=== PATIENT | male | born 1940 | race Caucasian/White ===

== ENCOUNTER → 2016-07-25 11:48 | Outpatient (CLI) | payer MEDICARE, BC ==
[2015-08-31 12:24] VITALS: BMI 23.6
[~2016-07-25 11:48] MED LIST: ASPIRIN 81 MG E81 MG PO; BETAPACE 80 MG80 MG PO; CARTIA XT180 MG PO; CORDARONE200 MG PO; COUMADIN3 MG PO; D5 1/2NS 10001000 ML; DOXEPIN HCL10 MG PO; FLOMAX0.4 MG PO; GLIPIZIDE10 MG PO; GLUCOPHAGE500 MG PO; HYDROCODON-ACE1 EAC7 PO; JANUVIA100 MG PO; LANOXIN125 MCG PO; LIPITOR20 MG PO; MEGACE40 MG PO; NEURONTIN 300300 MG PO; ONDANSETRON4 MG/2 M3 IV; PACERONE200 MG PO; PEPCID40 MG PO; PLAVIX75 MG PO; PRILOSEC20 MG PO; PROSCAR5 MG PO; PROTONIX40 MG PO; XARELTO20 MG PO; ZANTAC300 MG PO; ZESTRIL10 MG PO; ZOCOR20 MG PO
== END | disposition home or self-care (01) ==
LOC: D.LAB 11:48
DX: R05 Cough (principal); F17.200 Nicotine dependence, unspecified, uncomplicated

== ENCOUNTER 2016-07-27 05:39 | Inpatient (IN) | payer MEDICARE, BC ==
[~2016-07-27] VITALS: Ht 175.3 cm; Wt 72.6 kg
[~2016-07-27 05:39] MED LIST changes: -DOXEPIN HCL10 MG PO; -JANUVIA100 MG PO; -LANOXIN125 MCG PO; -LIPITOR20 MG PO; -MEGACE40 MG PO; -NEURONTIN 300300 MG PO
[2016-07-27 06:44] LABS: BASOPHILS 0 % (0-2); EOSINOPHILS 1.2 % (0-7); IMMATURE GRANULOCYTES 0.6 % (0-5); LYMPHOCYTES 6.1 % (15-50); MCH 20.1 pg (26.0-34.0); MCHC 29.6 g/dL (31.0-37.0); MONOCYTES 7.2 % (2-11); NEUTROPHILS 84.9 % (40-80); PLATELET COUNT 291 10x3/uL (130-400); RBC 3.53 10x6/uL (4.20-6.10); RDW 19.3 % (11.5-14.5); WBC 13.7 10x3/uL (4.8-10.8)
[2016-07-27 06:46] LABS: HEMOGLOBIN 7.1 g/dL (13.5-17.5)
[2016-07-27 06:57] LABS: ALBUMIN 2.7 g/dL (3.4-5.0); ANION GAP 16.9 mmol/L (8-16); BILIRUBIN - TOTAL 0.19 mg/dL (0.2-1.3); CALCIUM 8.3 mg/dL (8.5-10.1); CARBON DIOXIDE 20.4 mmol/L (21.0-32.0); CREATININE - SERUM 2.4 mg/dL (0.6-1.3); POTASSIUM - SERUM 4.3 mmol/L (3.5-5.1); PROTEIN - SERUM 7.2 g/dL (6.4-8.2)
[2016-07-27 07:54] LABS: APTT 25.6 SECONDS (22.8-39.4); INR 1.06 (0.85-1.17); PROTIME 13.6 SECONDS (11.6-15.0)
[2016-07-27 07:56] LABS: APPEARANCE CLEAR (CLEAR); BILIRUBIN NEGATIVE (NEGATIVE); COLOR YELLOW (YELLOW); GLUCOSE NEGATIVE (NEGATIVE); KETONE NEGATIVE (NEGATIVE); LEUKOCYTE ESTERASE NEGATIVE (NEGATIVE); NITRITE NEGATIVE (NEGATIVE); PROTEIN TRACE mg/dL (NEGATIVE); SPECIFIC GRAVITY 1.015 (1.005-1.020); UROBILINOGEN NORMAL (NORMAL)
[2016-07-27 07:58] LABS: BACTERIA FEW /hpf (NONE SEEN); EPITHELIAL CELLS 0-5 /hpf (0-5); HYALINE CAST OCC /lpf (NONE SEEN); MUCUS <1+ /lpf (NONE SEEN); RED CELLS - URINE 0-5 /hpf (0-5); WHITE CELLS - URINE 0-5 /hpf (0-5)
--- NOTE | 2016-07-27 09:45 | NUR ---
RECIEVED FROM ER VIA WC TO ROOM 2222 AWAKE AND ALERT ORINETED X 3 AT SIDE CALL LIGHT PLACED IN REACH AND SIDE RAILS UP X 2 PT WITH NO ACUTE DISTRESS NTOED UPON ASSESSMENT DOES HAVE TENDERNESS TO LEFT UPPER QUADRAND WITH PALPATION.
[2016-07-27 10:00] VITALS: BP 165/74; BMI 23.6
--- NOTE | 2016-07-27 10:05 | NUR ---
ASSESSMENT PER ADMIT PACK.PT WITHOUT DISTRESS.FAMILY AT BEDSIDE.ORIENTATION TO ROOM.CALL LIGHT IN REACH
--- NOTE | 2016-07-27 11:00 | NUR ---
SPOKE WITH DR SUBRAMANIAN NEW ORDER FOR CT OF ABDOMEN/PELVIS WITH ORAL CONRTAST ONLY ALSO CHANGE DIET TO CLEAR LIQUID DIABETIC DIET. AND START GOLYTLE CLEAN OUT AFTER CT SCAN THIS AFTERNOON. PT NOTIFIED OF NEW ORDERS
--- NOTE | 2016-07-27 12:20 | NUR ---
UNIT 1 OF 2 INITIATED AT THIS TIME PER UNIT RN. VS WNL SEE FLOW SHEET. AFEBRILE. PIV TO RIGHT FORARM 20 GA PATENT TO FLUSH WITH NO REDNESS NOTED WILL MONITOR DURING TRANSFUSION.
[2016-07-27 12:33] VITALS: BP 161/64
[2016-07-27] MEDS ORDERED: MEGACE40 MG PO (16:23)
[2016-07-27] MEDS ORDERED: LANOXIN125 MCG PO (16:25)
[2016-07-27] MEDS ORDERED: NEURONTIN 300300 MG PO (16:25)
[2016-07-27] MEDS ORDERED: LIPITOR20 MG PO (16:26)
[2016-07-27] MEDS ORDERED: DOXEPIN HCL10 MG PO (16:29)
[2016-07-27] MEDS ORDERED: JANUVIA100 MG PO (16:29)
[2016-07-27] MEDS ORDERED: HYDROCODON-ACE1 EAC7 PO (16:30)
--- NOTE | 2016-07-27 17:54 | NUR ---
UNIT [facility] 2 OF BLOOD COMPLETE AT THIS TIME
--- NOTE | 2016-07-27 18:12 | NUR ---
CALLED CT TO ALERT THAT BLOOD IS COMPLETE TO GET CT SCAN DONE
[2016-07-27 20:00] VITALS: BP 142/70
[2016-07-27 20:02] LABS: HEMATOCRIT 31.8 % (42.0-54.0); HEMOGLOBIN 9.7 g/dL (13.5-17.5)
[2016-07-28] VITALS: BP 141/65
[2016-07-28 04:00] VITALS: BP 118/66
--- NOTE | 2016-07-28 04:00 | NUR ---
PATIENT SLEEPING WITH NO DISTRESS NOTED. AGREE WITH WATER TRUCK DRIVER ASSESSMENT.
[2016-07-28 05:44] LABS: BASOPHILS 0.1 % (0-2); EOSINOPHILS 0.2 % (0-7); HEMOGLOBIN 9.7 g/dL (13.5-17.5); IMMATURE GRANULOCYTES 0.2 % (0-5); LYMPHOCYTES 5.8 % (15-50); MCH 21.9 pg (26.0-34.0); MCHC 30.3 g/dL (31.0-37.0); MEAN PLATELET VOLUME 9.1 fL (7.4-10.4); MONOCYTES 6.8 % (2-11); NEUTROPHILS 86.9 % (40-80); PLATELET COUNT 270 10x3/uL (130-400); RDW 20.9 % (11.5-14.5); WBC 12.1 10x3/uL (4.8-10.8)
[2016-07-28 05:46] LABS: MCV 72.2 fL (80.0-100.0); RBC 4.43 10x6/uL (4.20-6.10)
--- NOTE | 2016-07-28 05:54 | NUR ---
PATIENT SIGNED CONSENTS FOR EGD AND COLONOSCOPY WITH TIVA. ALL QUESTIONS WERE ANSWERED AT BEDSIDE.
[2016-07-28 05:55] LABS: ALBUMIN 2.7 g/dL (3.4-5.0); ANION GAP 14.7 mmol/L (8-16); BILIRUBIN - TOTAL 0.42 mg/dL (0.2-1.3); CALCIUM 8.6 mg/dL (8.5-10.1); CARBON DIOXIDE 24.4 mmol/L (21.0-32.0); POTASSIUM - SERUM 4.1 mmol/L (3.5-5.1); PROTEIN - SERUM 7.1 g/dL (6.4-8.2)
[2016-07-28 06:10] LABS: CREATININE - SERUM 1.5 mg/dL (0.6-1.3)
--- NOTE | 2016-07-28 06:25 | NUR ---
25mL OF D50 GIVEN FOR LAB DRAW GLUCOSE LEVEL OF 38.
--- NOTE | 2016-07-28 06:46 | NUR ---
RECHECK FSBG WAS 108. PATIENT WAS a&o THE WHOLE TIME.
--- NOTE | 2016-07-28 07:00 | NUR ---
REPORT RECEIVED FROM FIELD COIL WINDER NURSE. CALL LIGHT IN REACH.
[2016-07-28 07:46] VITALS: BP 142/62
--- NOTE | 2016-07-28 08:20 | NUR ---
OFFERED SCDs AND EXPLAINED IMPORTANCE OF THEM BUT PATIENT REFUSED.
--- NOTE | 2016-07-28 10:00 | NUR ---
PT AOX4 RESP EVEN AND NONLABORED IV TO LEFT FOREARM PATENT AND INTACT PT DENIES PAIN AND NEEDS AT THIS TIME. SRX2 BED AT LOWEST SETTING CALL LIGHT WITHIN REACH WILL CONTINUE TO MONITOR
--- NOTE | 2016-07-28 10:24 | NUR ---
ASSESSMENT COMPLETED. AM MEDS ADMINISTERED WITH SIP OF WATER AND NORCO ALSO FOR PAIN OF 7 TO ABDOMEN. PAIN SCALE NUMBER INCREASED TO 4 SO BED ALARM PLACED ON PATIENT. EMERGENCY CONTACT INFO OBTAINED AND PLACED IN CHART. REFUSED PASSWORD. WILL PLACE ANGEL CATHETER AFTER BED BATH IS GIVEN PER PROGRAMMER NUMERICAL CONTROL. CALL LIGHT IN REACH. WILL CONTINUE WITH PLAN OF CARE.
--- NOTE | 2016-07-28 11:05 | NUR ---
FSBS 44 SO 1/2 AMP OF D50 GIVEN IV.
--- NOTE | 2016-07-28 11:16 | NUR ---
16 FR ANGEL CATH INSERTED USING STERILE TECHNIQUE WITH 200 CC CLEAR YELLOW URINE RETURN. ALL KIT CONTENTS USED. TOLERATED WELL.
[2016-07-28 11:51] VITALS: BP 149/70
--- NOTE | 2016-07-28 12:15 | NUR ---
NO NEEDS VOICED AT THIS TIME. CALL LIGHT IN REACH.
[2016-07-28 12:39] VITALS: Ht 175.3 cm; Wt 72.6 kg
--- NOTE | 2016-07-28 14:04 | NUR ---
PREOP MEDS ADMINISTERED. NORCO AND DIG WITH SIP OF WATER. CALL LIGHT IN REACH.
[2016-07-28 14:44] VITALS: BP 136/65
--- NOTE | 2016-07-28 15:04 | NUR ---
TO GI LAB VIA BED.
--- NOTE | 2016-07-28 16:20 | NUR ---
BACK IN ROOM AT THIS TIME. VSS. IN ROOM. CALL LIGHT IN REACH.
--- NOTE | 2016-07-28 18:43 | NUR ---
NO CHANGES IN INITIAL ASSESSMENT. STILL REFUSES SCDs. CALL LIGHT IN REACH. WILL CONTINUE WITH PLAN OF CARE.
[2016-07-28 19:08] LABS: HEMOGLOBIN 9.8 g/dL (13.5-17.5)
[2016-07-28 20:00] VITALS: BP 124/64
[2016-07-29] VITALS: BP 131/64
[2016-07-29 04:00] VITALS: BP 112/56
--- NOTE | 2016-07-29 05:31 | NUR ---
PATIENT WAS UP AND DOWN THROUGHOUT THE NIGHT. ASHLYN MAT WAS ADDED SINCE THE PATIENT WOULD UNCLIP THE BOX ALARM FROM GOWN TO GET UP TO THE RESTROOM. HE WAS STABLE ON HIS FEET BUT HAS A Hx OF FALLS. ANGEL CAUSED SOME DISCOMFORT, IT WAS RE-CLIPPED INTO THE STAT LOCK ON HIS RIGHT LEG AND DISCOMFORT WAS RESOLVED. HE EXPRESSED CONCERNS TOWARDS HIS ANXIETY LEVELS AND THE DECREASE IN MEDICATIONS THAT HE HAS BEEN RECIEVING. SOME COMPLAINTS OF DISCOMFORT TO HIS LEFT UP ABDOMEN WITH A 6/10 PAIN DESCRIBED. CURRENT PAIN REGIME SEEMS TO BE ADEQUATE.
[2016-07-29 05:52] LABS: BASOPHILS 0.1 % (0-2); EOSINOPHILS 1.2 % (0-7); HEMATOCRIT 33.1 % (42.0-54.0); IMMATURE GRANULOCYTES 0.2 % (0-5); LYMPHOCYTES 10.4 % (15-50); MCHC 30.2 g/dL (31.0-37.0); MCV 72.7 fL (80.0-100.0); MEAN PLATELET VOLUME 9.8 fL (7.4-10.4); NEUTROPHILS 81.1 % (40-80); PLATELET COUNT 293 10x3/uL (130-400); RBC 4.55 10x6/uL (4.20-6.10); RDW 21.5 % (11.5-14.5); WBC 12.9 10x3/uL (4.8-10.8)
[2016-07-29 06:23] LABS: ALBUMIN 2.7 g/dL (3.4-5.0); ANION GAP 11.8 mmol/L (8-16); BILIRUBIN - TOTAL 0.31 mg/dL (0.2-1.3); CALCIUM 8.5 mg/dL (8.5-10.1); CARBON DIOXIDE 26.1 mmol/L (21.0-32.0); CREATININE - SERUM 1.7 mg/dL (0.6-1.3); POTASSIUM - SERUM 3.9 mmol/L (3.5-5.1); PROTEIN - SERUM 7.5 g/dL (6.4-8.2); T4 THYROXIN - FREE 1.34 ng/dL (0.76-1.46); THYROID STIMULATING HORMONE 2.05 uIU/mL (0.36-3.74)
--- NOTE | 2016-07-29 07:10 | NUR ---
REPORT RECEIVED FROM AIR TRAFFIC COORDINATOR NURSE. CALL LIGHT IN REACH.
--- NOTE | 2016-07-29 08:00 | NUR ---
TO RADIOLOGY VIA .
[2016-07-29 08:05] VITALS: BP 145/66
--- NOTE | 2016-07-29 09:40 | NUR ---
SITTING UP ON SIDE OF BED ALERT. NO SIGNS OF DISTRESS NOTED. BED IN LOW POSITION. CALL LIGHT IN REACH.
--- NOTE | 2016-07-29 09:53 | NUR ---
BACK IN ROOM. ASSESSMENT COMPLETED. AM MEDS ADMINISTERED. REFUSES SCDs. CALL LIGHT IN REACH. ASHLYN MAT ALARM ON. WILL CONTINUE WITH PLAN OF CARE.
--- NOTE | 2016-07-29 11:20 | NUR ---
AMI AND DIG PO. PROTONIX SIVP. FSBS 150 SO NO COVERAGE REQUIRED.
[2016-07-29 12:38] VITALS: BP 136/68
--- NOTE | 2016-07-29 13:40 | NUR ---
IN ROOM. PATIENT DENIES NEEDS AT THIS TIME. CALL LIGHT IN REACH.
--- NOTE | 2016-07-29 15:57 | NUR ---
NO NEEDS VOICED AT THIS TIME. CALL LIGHT IN REACH.
[2016-07-29 16:01] VITALS: BP 135/65
--- NOTE | 2016-07-29 16:43 | NUR ---
REFUSED INSULIN AT THIS TIME. WANTS TO TAKE GLIPIZIDE INSTEAD. NORCO PO FOR PAIN OF 10. FLAGYL IVPB. IN ROOM. CALL LIGHT IN REACH.
--- NOTE | 2016-07-29 18:54 | NUR ---
NO CHANGES IN INITIAL ASSESSMENT. CALL LIGHT IN REACH. STILL REFUSES SCDs. CALL LIGHT IN REACH. WILL CONTINUE WITH PLAN OF CARE.
[2016-07-29 20:00] VITALS: BP 132/90
--- NOTE | 2016-07-29 20:18 | NUR ---
PATIENT SITTING IN BED, COMPLAINTS OF ABDOMINAL PAIN. HE WAS INFORMED THAT HE HAD PAIN MEDICATION EVERY 8 HOURS AND WAS OKAY WITH THAT. ANGEL CHECKED AND WAS SECURED TO HIS LEG PROPERLY IN THE STAT LOCK. NO OTHER NEEDS NOTED AT THIS TIME. BED IN LOWEST LOCKED POSITION, CALL LIGHT WITHIN REACH, HOB ELEVATED, BED RAILS UPx2. BED ALARMS OFF, BED ALARM REFUSAL FORM SIGNED AND IN CHART.
[2016-07-30] VITALS: BP 134/67
--- NOTE | 2016-07-30 00:19 | NUR ---
PATIENT RESTING WITH EYES CLOSED AND NO VISIBLE SIGNS OF DISTRESS. BED IN LOWEST POSITION AND CALL LIGHT WITHIN REACH.
[2016-07-30 04:00] VITALS: BP 121/59
[2016-07-30 04:58] LABS: BASOPHILS 0.1 % (0-2); HEMATOCRIT 31.4 % (42.0-54.0); HEMOGLOBIN 9.4 g/dL (13.5-17.5); IMMATURE GRANULOCYTES 0.4 % (0-5); LYMPHOCYTES 7.5 % (15-50); MCH 21.9 pg (26.0-34.0); MCHC 29.9 g/dL (31.0-37.0); MEAN PLATELET VOLUME 9.4 fL (7.4-10.4); MONOCYTES 8.7 % (2-11); NEUTROPHILS 81.3 % (40-80); PLATELET COUNT 240 10x3/uL (130-400); RDW 21.5 % (11.5-14.5)
[2016-07-30 05:15] LABS: ALBUMIN 2.3 g/dL (3.4-5.0); BILIRUBIN - TOTAL 0.4 mg/dL (0.2-1.3); CARBON DIOXIDE 25.7 mmol/L (21.0-32.0); CREATININE - SERUM 1.4 mg/dL (0.6-1.3); POTASSIUM - SERUM 3.7 mmol/L (3.5-5.1); PROTEIN - SERUM 6.3 g/dL (6.4-8.2)
[2016-07-30 07:44] VITALS: BP 141/60
--- NOTE | 2016-07-30 08:17 | NUR ---
PT AOX4 RESP EVEN AND NONLABORED PT DENIES NEEDS AT THIS TIME SL TO RIGHT FOREARM PATENT AND INTACT SRX2 BED IN LOWEST POSITION CALL LIGHT WITHIN REACH WILL CONTINUE TO MONITOR
[2016-07-30 12:40] VITALS: BP 138/54
[2016-07-30 15:50] VITALS: BP 105/54
--- NOTE | 2016-07-30 19:49 | NUR ---
PATIENT CALL LIGHT WAS RESPONED TO. PATIENT HAD TAKEN OFF HIS BOX ALARM, STANDING UP AT BEDSIDE, UNBALANCED. BLOOD WAS NOTED ON HIS PILLOW CASE, SHEETS, AND BLANKETS. UPON FURTHER INSPECTION HE HAD PULLED OUT IS 20G PIV TO HIS RIGHT FOREARM. HE WAS INFORMED TO SIT BACK DOWN SO HE DOESN'T FALL AND INJURE HIMSELF. HE WAS ALSO INFORMED THAT ANOTHER PIV WOULD BE PLACED.
[2016-07-30 20:00] VITALS: BP 153/73
--- NOTE | 2016-07-30 20:16 | NUR ---
20G PIV TO THE LEFT FOREARM INIATED. PIV SALINE LOCKED. FULL LINEN CHANGE COMPLETED AND PATIENT CLEANED UP WITH NEW GOWN. EVS INFORMED THAT THE FLOOR NEEDS TO BE MOPPED. ASHLYN ALARM TURNED ON EVEN THOUGH PATIENT HAS A BED ALARM WAIVER SIGNED AFTER HE STUMBLED 2 STEPS WHILE TRYING TO CLIMB INTO BED.
[2016-07-31 00:09] VITALS: BP 103/78
[2016-07-31 04:00] VITALS: BP 138/65
--- NOTE | 2016-07-31 04:07 | NUR ---
EYES CLOSED RESPIRATIONS WITH EASE AND UNLABORED. SR UP X2 CALL LIGHT WITHIN REACH.
[2016-07-31 04:54] LABS: BASOPHILS 0.1 % (0-2); EOSINOPHILS 1.5 % (0-7); HEMOGLOBIN 9.2 g/dL (13.5-17.5); IMMATURE GRANULOCYTES 0.3 % (0-5); LYMPHOCYTES 10.3 % (15-50); MCH 22.3 pg (26.0-34.0); MCHC 30.7 g/dL (31.0-37.0); MCV 72.6 fL (80.0-100.0); MEAN PLATELET VOLUME 9.3 fL (7.4-10.4); MONOCYTES 6.8 % (2-11); PLATELET COUNT 240 10x3/uL (130-400); RBC 4.13 10x6/uL (4.20-6.10); RDW 21.8 % (11.5-14.5)
[2016-07-31 04:57] LABS: WBC 13.6 10x3/uL (4.8-10.8)
[2016-07-31 05:24] LABS: ALBUMIN 2.2 g/dL (3.4-5.0); ANION GAP 12.3 mmol/L (8-16); BILIRUBIN - TOTAL 0.28 mg/dL (0.2-1.3); CALCIUM 8.4 mg/dL (8.5-10.1); CARBON DIOXIDE 23.8 mmol/L (21.0-32.0); CREATININE - SERUM 1.5 mg/dL (0.6-1.3); POTASSIUM - SERUM 4.1 mmol/L (3.5-5.1); PROTEIN - SERUM 6.3 g/dL (6.4-8.2)
--- NOTE | 2016-07-31 09:09 | NUR ---
Patient Name: MORENO CARRASCO Admission Status: ER Accout number: [id number] Admission Date: 07-27-2016 : 1941 Admission Diagnosis:IRON DEFICIENCY ANEMIA SECONDARY TO BLOOD LOSS (CHRONIC Attending: KONSTANTIN Current LOS: 4 Anticipated DC Date: 08-02-2016 Planned Disposition: Home Primary Insurance: MEDICARE A & B Discharge Planning Comments: CM MET WITH PATIENT REGARDING D/C NEEDS AND PLANS. PATIENT STATED HE LIVES WITH HIS SPOUSE (HEATHER) AND SHE WILL DRIVE HIM HOME AT DISCHARGE. PATIENT STATED HIS HOME IS SAFE. PATIENT HAS 1 STEP W/O RAILS TO ENTER HOME AND 1 STAIRCASE INSIDE W/O RAILS (PATIENT DOES NOT USE STAIRCASE). PATIENT STATED HE IS INDEPENDENT WITH HIS CARE AND HAS A GLUCOMETER AT HOME AND CHECKS HIS SUGAR 1-2 X DAILY. PATIENTS PCP IS DR. BURTON AND PHARMACY IS [facility] PATIENT DOES NOT WANT HOME HEALTH AT THIS TIME. CM WILL CONTINUE TO FOLLOW PATIENT WITH D/C NEEDS AND PLANS. PCP DR. [facility]- [phone] HEATHER (SPOUSE) [phone] OR [phone] Tableman: Ana Leonardo
--- NOTE | 2016-07-31 09:14 | NUR ---
BACK FROM TEST ALERT AND ORIENTED, MAURAS NEEDS, ASSESSMENT COMPLETE, CALL LIGHT IN REACH, BED LOWEST POSITION, WILL CONTINUE TO MONITOR
--- NOTE | 2016-07-31 09:38 | NUR ---
Rehab Note- Acute Rehab Prescreen order. Spoke with SHAI Perez. Awaiting PT eval. Thank you for this referral! Velma Ruiz RN Clinical Liaison, [facility]/Jeanie
[2016-07-31 09:45] VITALS: BP 106/64
--- NOTE | 2016-07-31 10:00 | NUR ---
ASKED PT ABOUT LEFT SIDED PAIN, HE STATED HE FELL AT HOME NOT AT THE HOSPITAL
--- NOTE | 2016-07-31 11:00 | NUR ---
UP IN CHAIR AT THIS TIME WITH ASHLYN MAT ALARM ON AND IN USE. PT DENIES PAIN AT THIS TIME. ANGEL CATHETER PATENT AND DRAINING TO GRAVITY. RESPIRATIONS EVEN AND NON LABORED. CALL LIGHT IN REACH AND DOOR OPEN. WILL CONTINUE WITH PLAN OF CARE.
[2016-07-31 12:59] VITALS: BP 123/58
[2016-07-31] MEDS ORDERED: HUMULIN R100 U/ML SC (13:33)
[2016-07-31] MEDS ORDERED: FLAGYL 500500 MG/100 IV (13:37)
--- NOTE | 2016-07-31 16:32 | OP ---
PATIENT NAME: MORENO CARRASCO MEDICAL RECORD: [id number] :41 LOCATION:[facility] ADMISSION DATE:07/27/16 SURGEON: MAIN SUBRAMANIAN MD DATE OF OPERATION: 07/28/2016 PROCEDURE: EGD with biopsy and colonoscopy. ATTENDING PHYSICIAN: Dorinda Burton DO INDICATIONS: Mr. Carrasco is a pleasant 75-year-old gentleman with a history of coronary artery disease with stents and a pacemaker, who presented to the Emergency Department secondary to symptoms of abdominal pain. CT of the abdomen and pelvis showed constipation and dilated urinary bladder with enlarge prostate, possible outlet obstruction. His labs were remarkable for hemoglobin of 7.1. Stools were Hemoccult positive. He has been on Plavix therapy. He had 2 units of packed red blood cells and his hemoglobin increase to 9.7. He has had colonoscopy in the remote past, had an EGD with Dr. Csatle, August 2015. 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 To further evaluate his microcytic anemia, he presents for inpatient EGD and colonoscopy. PREMEDICATIONS: Total IV anesthesia (ASA 3, history of coronary artery disease), propofol 500 mg. INSTRUMENT: Olympus video gastroscope and Olympus video colonoscope. PROCEDURE AND FINDINGS: After receiving informed consent, Mr. Carrasco's posterior pharynx was anesthetized with Cetacaine spray, placed in left lateral decubitus position, sedated as per anesthesia. After achieving an adequate level of sedation, the gastroscope was introduced per orally and advanced into the duodenum without difficulty. There were several tongues of salmon-colored mucosa extending from the Z line proximally (not biopsied on this exam) small hiatal hernia. There was a patch of erythema in the body of the stomach, nonhemorrhagic. There were no lesions seen along the incisura, in the cardia or fundus. There is mild prepyloric erythema and antral biopsies were obtained to rule out Helicobacter pylori. The pylorus was patent and competent. Duodenal mucosa was without erythema or ulcers, appeared normal to the second portion. Biopsies were obtained from the second portion of duodenum. The gastroscope was then withdrawn. He is prepared for colonoscopy. Digital rectal exam was performed that showed no external hemorrhoidal tags, fissures or fistulas, slightly decreased sphincter tone, no palpable rectal masses. The prostate was enlarged without nodules. The colonoscope was introduced per rectally and advanced to the cecum without difficulty. There was a fair to copious amount of thick liquid semi-formed stool and indigestible debris scattered throughout the colon. Multiple lavages were performed. The terminal ileum was briefly intubated and the mucosa appeared normal. As the colonoscope was withdrawn, careful inspection was made of the gamboa of the colon. Overall mucosa had normal vascular and fold pattern. Multiple lavages were performed. There was a cluster of diverticula in the proximal descending colon and then scattered throughout the sigmoid colon. Retroflexion in rectum showed mild internal hemorrhoids. There is no blood seen in the upper GI tract nor in the lower GI tract. ASSESSMENT: OPERATIVE REPORT [id number] MORENO CARRASCO 1. 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 2. Small hiatal hernia. 3. Mild gastritis. 4. Left colonic diverticulosis without obvious diverticulitis, but bowel prep was marginal and may have underlying low-grade diverticulitis to explain his left side abdominal pain. 5. Microcytic anemia, no obvious upper or lower gastrointestinal etiology. RECOMMENDATIONS: 1. Small bowel follow through. 2. We will check a T4, TSH and serum protein electrophoresis. 3. Follow up histopathology. 4. Empirically treat with Flagyl 500 mg IV q. 8 hours. 5. Small bowel follow through, T4, TSH and serum protein electrophoresis are normal. Recommend hematology/oncology consultation regarding his microcytic anemia. TRANSINT:[id number] Voice Confirmation ID: [id number] DOCUMENT ID: [id number] MAIN SUBRAMANIAN MD at 1632 CC: DORINDA BURTON DO [id number] DICTATION DATE: 07/28/16 1640 MASON LINER: 07/29/16 0034 ADM IN [facility] [address] [place] [address]
--- NOTE | 2016-07-31 16:35 | NUR ---
CM REASSESSMENT NOTE: PATIENT IS DISCHARGING TO IP REHAB. AWARE, D/C IMM SIGNED
[2016-07-31 17:02] VITALS: BP 135/62
--- NOTE | 2016-07-31 22:18 | NUR ---
REC'D PATIENT SITTING UP ON SIDE OF BED, IS WANTING TO MAKE A PHONE CALL. ALERT AND ORIENTED X4. DENIES PAIN AT THIS TIME. HELPED HIM TO PLACE THE CALL. DENIES FURTHER NEEDS AT THIS TIME. NO DISTRESS NOTED. INSTRUCTED TO CALL IF NEEDED ANYTHING. BED LOW, LOCKED, CALL LIGHT IN REACH.
--- NOTE | 2016-07-31 22:20 | NUR ---
PATIENT WAS DC TO REHAB. GAVE REPORT TO REHAB NURSE. GAVE DC INSTRUCTIONS TO PATIENT. ANGEL AND IV STILL INTACTED. DEC'D HEART MONITOR. WAS TAKING DOWN BY WHEELCHAIR BY CHARLOTTE DUNCAN.
[2016-08-01 16:13] LABS: SPE - A/G RATIO 0.8 (0.7-1.7); SPE - ALBUMIN 2.9 g/dL (2.9-4.4); SPE - ALPHA-1 GLOBULIN 0.3 g/dL (0.0-0.4); SPE - ALPHA-2 GLOBULIN 1.2 g/dL (0.4-1.0); SPE - BETA GLOBULIN 1.2 g/dL (0.7-1.3); SPE - M-SPIKE Not Observed g/dL (Not Observed); SPE - TOTAL PROTEIN 6.6 g/dL (6.0-8.5)
== END 2016-07-31 21:21 | DRG 812 ==
LOC: D.ER 05:39 → D.MS 09:13
PROVIDERS: Emergency Medicine; Internal Medicine Gastroenterology; ADMIT Family Medicine
PROC: 0DB68ZX Excision of Stomach, Via Natural or Artificial Opening Endoscopic, Diagnostic (ICD-10-PCS; 2016-07-28)
PROC: 0DJD8ZZ Inspection of Lower Intestinal Tract, Via Natural or Artificial Opening Endoscopic (ICD-10-PCS; 2016-07-28)
PROC: 0DB98ZX Excision of Duodenum, Via Natural or Artificial Opening Endoscopic, Diagnostic (ICD-10-PCS; principal; 2016-07-28 15:00)
DX: D50.0 Iron deficiency anemia secondary to blood loss (chronic) (principal); K92.2 Gastrointestinal hemorrhage, unspecified; E11.65 Type 2 diabetes mellitus with hyperglycemia; I48.91 Unspecified atrial fibrillation; Z79.84 Long term (current) use of oral hypoglycemic drugs; I10 Essential (primary) hypertension; Z95.0 Presence of cardiac pacemaker; N32.89 Other specified disorders of bladder; N40.0 Benign prostatic hyperplasia without lower urinary tract symptoms; Z91.81 History of falling; K64.8 Other hemorrhoids; K44.9 Diaphragmatic hernia without obstruction or gangrene; K29.70 Gastritis, unspecified, without bleeding; K22.70 Barrett's esophagus without dysplasia

== ENCOUNTER 2016-07-31 21:48 | Inpatient (IN) | payer MEDICARE, BC ==
[~2016-07-31] VITALS: Ht 167.6 cm; Wt 73.5 kg
[~2016-07-31 21:48] MED LIST changes: +DOXEPIN HCL10 MG PO; +FLAGYL 500500 MG/100 IV; +HUMULIN R100 U/ML SC; +JANUVIA100 MG PO; +LANOXIN125 MCG PO; +LIPITOR20 MG PO; +MEGACE40 MG PO; +NEURONTIN 300300 MG PO
--- NOTE | 2016-07-31 22:00 | NUR ---
PT HAS THICK ACCENT, ADMISSION ASSESSMENT, PAPER SIGNED, PT APPEARS TO ANSWER APPROPRIATELY. PT ANGEL CATHETER UNKINKED, PT STATES HE WAS FEELING A LITTLE FULL. PT PLEASANT.
--- NOTE | 2016-07-31 22:30 | NUR ---
PT IN ROOM, TRANSPORTED FROM MED SURG ACCOMPANIED BY STAFF. PT RESIDES WITH SPOUSE AND PLANS TO RETURN HOME, PT STATES HE HAS TWO ADULT CHILDREN THAT LIVE OUT OF STATE. PT STATE HE IS MOTIVATED TO GET STARTED WITH THERAPY, GET HIS STRENGTH AND RETURN HOME. PT STATES HE ONLY HAS PAIN AT THIS TIME WHEN HIS RIBS ARE TOUCHED, HE COUGHS OR MOVES ESPECIALLY WHEN USING HIS LEFT ARM. PT CONVERSIVE, SMILES EASILY. PT HAS TREMORS IN BOTH HANDS, PT STATES USUALLY WHEN HE IS USING THEM SUCH WRITING.
[2016-07-31 23:10] VITALS: BP 146/56; BMI 26.2
--- NOTE | 2016-08-01 00:15 | NUR ---
PT RESTING QUIETLY, RESPIRATIONS REGULAR AND UNLABORED, NO S/S OF ACUTE DISTRESS.
--- NOTE | 2016-08-01 05:00 | NUR ---
PT RESTING QUIELTY, RESPIRATIONS REGULAR AND UNLABORED. PT DENIES ANY NEEDS.
--- NOTE | 2016-08-01 06:35 | NUR ---
PT RESTING QUIETLY, NO S/S OF ACUTE DISTRESS. RESPIRATIONS REGULAR AND UNLABORED.
[2016-08-01 07:28] LABS: BASOPHILS 0.1 % (0-2); HEMATOCRIT 31.2 % (42.0-54.0); HEMOGLOBIN 9.3 g/dL (13.5-17.5); IMMATURE GRANULOCYTES 0.4 % (0-5); LYMPHOCYTES 7.4 % (15-50); MCH 21.6 pg (26.0-34.0); MCHC 29.8 g/dL (31.0-37.0); MCV 72.6 fL (80.0-100.0); MEAN PLATELET VOLUME 9.6 fL (7.4-10.4); MONOCYTES 7.4 % (2-11); NEUTROPHILS 83.7 % (40-80); PLATELET COUNT 252 10x3/uL (130-400); RDW 22.4 % (11.5-14.5)
[2016-08-01 07:32] LABS: WBC 18.1 10x3/uL (4.8-10.8)
[2016-08-01 07:40] LABS: ANION GAP 14.9 mmol/L (8-16); CALCIUM 8.1 mg/dL (8.5-10.1); CARBON DIOXIDE 23.4 mmol/L (21.0-32.0); CREATININE - SERUM 1.8 mg/dL (0.6-1.3); POTASSIUM - SERUM 4.3 mmol/L (3.5-5.1)
[2016-08-01 08:00] VITALS: BP 137/57
--- NOTE | 2016-08-01 08:15 | NUR ---
PT RESTING IN BED WITH EYES OPEN CALL LIGHT IN REACH PT EATING BREAKFAST TOLERATING WELL
[2016-08-01 13:20] VITALS: Ht 167.6 cm; Wt 73.5 kg
--- NOTE | 2016-08-01 18:48 | NUR ---
RESTING QUIETLY IN BED CALL LIGHT IN REACH
--- NOTE | 2016-08-01 19:42 | NUR ---
PT RECEIVED IN BED WITH EYES CLOSED AND CHEST RISING. EASILY AROUSED TO VERBAL STIMULI. NO NEEDS OR CONCERNS MADE KNOWN. CALL LIGHT IN REACH. WILL CONTINUE TO OBSEERVE.
[2016-08-01 21:39] VITALS: BP 142/58
--- NOTE | 2016-08-01 22:51 | NUR ---
PT IN BED WITH EYES CLOSED AND CHEST RISING AT THIS TIME. RECEIVED MEDICATIONS PER MAR. NO CONCERNS AT THIS TIME. CALL LIGHT IN REACH. WILL CONTINUE OBSERVE.
--- NOTE | 2016-08-02 02:07 | NUR ---
PT IN BED WITH EYES CLOSED AND CHEST RISING. NO CONCERNS NOTED AT THIS TIME. CALL LIGHT IN REACH. WILL CONTINUE TO OBSERVE.
--- NOTE | 2016-08-02 04:49 | NUR ---
PT IN BED WITH EYES CLOSED AND CHEST RISING. NO SIGN/SYMPTOMS OF DISTRESS NOTED. CALL LIGHT IN REACH. WILL CONTINUE TO OBSERVE.
--- NOTE | 2016-08-02 07:25 | NUR ---
PT RESTING IN BED WITH EYES OPEN CALL LIGHT IN REACH NO PROBLEMS WILL MONITER
[2016-08-02 08:11] VITALS: BP 96/49
--- NOTE | 2016-08-02 11:33 | NUR ---
IN THERAPY.NEHA WELL.
--- NOTE | 2016-08-02 13:33 | NUR ---
PT UP ON SIDE OF BED WATCHING TV CALL LIGHT IN REACH WILL MONITER
--- NOTE | 2016-08-02 16:57 | NUR ---
CARE TEAM MEETING: SPOUSE ATTENDED THE MEETING. PLANS ARE FOR PATIENT TO RETURN HOME THEY ARE MOVING NORTH. DR. BURTON IS PCP AND [facility] IS [facility]Y. TENATIVE DISCHARGE DATE IS 08/11/16. WILL CONTINUE TO FOLLOW WITH PATIENT UNTIL DISCHARGED
--- NOTE | 2016-08-02 17:38 | NUR ---
PT RESTING IN BED WITH EYES OPEN CALL LIGHT IN REACH NO PROBLEMS WILL MONITER
--- NOTE | 2016-08-02 19:29 | NUR ---
PT RECEIVED IN BED WITH EYES CLOSED AND CHEST RISING. AROUSED TO VERBAL STIMULI. NO COMPLAINTS OR CONCERNS NOTED AT THIS TIME. O2 AT 2LPM. CALL LIGHT IN REACH. WILL CONTINUE TO OBSERVE.
[2016-08-02 20:35] VITALS: BP 137/69
--- NOTE | 2016-08-02 23:05 | NUR ---
PT IN BED WITH EYES CLOSED AND CHEST RISING. EASILY AROUSED TO VERBAL STIMULI. RECEIVED HS MEDICATIONS PER MAR WITHOUT DIFFICULTY. NO CONCERNS NOTED AT THIS TIME. CALL LIGHT IN REACH.
--- NOTE | 2016-08-03 02:00 | NUR ---
PT IN BED WITH EYES CLOSED AND CHEST RISING. NO SIGN/SYMPTOMS OF DISTRESS NOTED AT THIS TIME. CALL LIGHT IN REACH.
--- NOTE | 2016-08-03 07:25 | NUR ---
AROUSES EASILY FOR ASSESSMENT.DENIES NEEDS.JEANNE PATENT TO GRAVITY .CL IN EASY REACH,BED IN LOW POSITION.
[2016-08-03 11:36] VITALS: BP 106/49
--- NOTE | 2016-08-03 12:08 | RHP ---
PATIENT: MORENO CARRASCO MEDICAL RECORD: [id number] ACCOUNT: [id number] LOCATION:[id number] : 41 ADMISSION DATE: 07/31/16 REHABILITATION HISTORY AND PHYSICAL EXAMINATION POST ADMISSION PHYSICIAN EXAMINATION Post-admission Physical Examination and History and Physical DATE OF ADMISSION TO THE REHAB: 07/31/2016 ADMITTING DIAGNOSIS: Status post major multiple fractures secondary to multiple medical trauma with acute fractures of his left 8th through 10th ribs. HISTORY OF PRESENT ILLNESS: The patient admitted to the Emergency Room for multiple rib fractures 8th, 9th and 10th. He was admitted to the Emergency Room with complaints of left-sided abdominal pain with anemia, positive for GI bleed. His H&H were 7 and 24 on 07/27/2016, was transfused with 2 units of packed red blood cells. He is a 75-year-old gentleman with a history of coronary artery disease, stents and pacemaker. CT of abdomen and pelvis showed constipation, dilated urinary bladder with enlarged prostate with possible outlet obstruction. He has been seen by urology and has a Mtz catheter due to urinary retention. He also has had an EGD. He is currently on telemetry and oxygen 2 liters. He lives at home with his and independent with ADLs and mobility, but he has had a recent fall at home. He is currently set up with moderate assist in his ADLs to moderate assist with mobility. He and his both plan on returning back to their level of function and him returning home. COMORBIDITIES: Include hypoglycemia, microcytic anemia, abdominal pain, enlarged prostate, bladder trigone mass, hypertension, diabetes, GI bleed, anemia, short segment of Pastor's esophagitis, mild gastritis, cluster of diverticula in the proximal descending colon and mild internal hemorrhoids. PAST MEDICAL HISTORY: Includes TIA, diabetes, hypertension, AFib, coronary artery disease and Pastor esophagitis. PAST SURGICAL HISTORY: Includes gallbladder surgery, pacemaker, and angioplasty. ALLERGIES: No known drug allergies. CURRENT MEDICATIONS: Include Floranex daily. He is on Insta-Glucose gel as needed. He is on dextrose p.r.n. He follows a low resistant sliding scale q.a.c. and q.h.s. Humulin. He is on Flagyl 500 mg q.8 hours. Megace 400 mg daily, hydrocodone 10/325 one tab q.6 hours p.r.n., Glucotrol 10 mg daily p.r.n., Neurontin 300 mg daily, Finasteride 5 mg daily, doxepin 10 mg q.a.m., diltiazem 180 mg daily, digoxin 0.125 mg daily, amiodarone 200 mg b.i.d., polyethylene glycol 17 grams in 8 ounces of water daily. HABITS: No current alcohol or tobacco use. FAMILY HISTORY: Noncontributory. SOCIAL HISTORY: The patient hopes to return back home with his . REVIEW OF SYSTEMS: HISTORY AND PHYSICAL [id number] MORENO CARRASCO GENERAL: He does complain of little weakness. HEENT: He denies cold, cough, or congestion. CARDIOVASCULAR: Denies chest pain. PHYSICAL EXAMINATION: VITAL SIGNS: Stable, afebrile. GENERAL: Elderly gentleman in no acute distress, alert upon exam. HEENT: Normocephalic, atraumatic. Mucosa moist. NECK: Supple, with no lymphadenopathy. LUNGS: Clear at this time. HEART: Irregular rate and rhythm. ABDOMEN: Benign. EXTREMITIES: No clubbing, cyanosis or edema. NEUROLOGIC: Seems intact. LABORATORY DATA: His white count is 18.1, H&H 9 and 31 and platelet count was 252. Sodium 143, potassium 4.3, BUN and creatinine of 32 and 1.8 and blood sugar is noted to be 70. ASSESSMENT: This is a 75-year-old gentleman admitted to the rehab with a working diagnosis of multiple trauma. The patient has potential to make improvement. We instituted the following multidisciplinary therapies including to, but not limited to physical, occupational, respiratory, speech, nutritional services, prosthetics and orthotics. Given his complex condition and risk for more complications, rehabilitation services cannot be provided at a low level of care such as a retirement facility. PLAN: 1. Admit to [facility] rehab for intensive inpatient therapy to include the following disciplines: A. Physical therapy to improve gait, all transfer skills and bed mobility to a modified independent level. B. Occupational therapy to improve activities of daily living to a modified independent level. C. Case management to assist with discharge planning and placement options. D. Nutrition to assist with nutritional needs. E. Rehabilitation nursing to assist in monitoring the patient's underlying medical conditions and to assist with any type of bowel or bladder management. 2. The patient's current medications and medical care will be continued. 3. The patient will be placed on standard fall precautions. 4. We will go ahead and get a CT of his chest for what appears to be an incidental finding on his chest x-ray. 5. Discuss this patient during care team staff meeting this week. TRANSINT:[id number] Voice Confirmation ID: [id number] DOCUMENT ID: [id number] MATT notes whether there has been none or any medical/functional change since admission: - MATT attests patient continues to be appropriate for IRF: - HISTORY AND PHYSICAL [id number] MORENO CARRASCO SCOTT MD at 1208 CC: [id number] DICTATION DATE: 08/01/161421 HOME SUPERVISOR: 08/02/16 0846 ADM IN [facility] [address] [place] [address]
[2016-08-03 20:20] VITALS: BP 128/60
--- NOTE | 2016-08-03 23:04 | NUR ---
PT. IN BED WITH HOB UP FOR COMFORT WITH EYES CLOSED AND RESP. EVEN. ANGEL TO BSD WITHOUT PROBLEMS. PLACED A NEW STAT LOCK DEVICE EARLIER DUE TO OLD ONE COMING OFF AND PT. C/O OF CATH TUBING PULLING. CALL LIGHT WITHIN REACH.
--- NOTE | 2016-08-04 03:01 | NUR ---
PT. IN BED WITH HOB UP FOR COMFORT WITH EYES CLOSED AND RESP. EVEN. O2 ON VIA N/C @ 2L/MIN WITH CALL LIGHT WITHIN REACH FOR NEEDS.
[2016-08-04 07:33] LABS: BASOPHILS 0.1 % (0-2); HEMATOCRIT 28.9 % (42.0-54.0); HEMOGLOBIN 8.8 g/dL (13.5-17.5); IMMATURE GRANULOCYTES 0.3 % (0-5); LYMPHOCYTES 6.9 % (15-50); MCH 21.9 pg (26.0-34.0); MCHC 30.4 g/dL (31.0-37.0); MCV 71.9 fL (80.0-100.0); MEAN PLATELET VOLUME 9.6 fL (7.4-10.4); MONOCYTES 6.3 % (2-11); NEUTROPHILS 85.4 % (40-80); PLATELET COUNT 299 10x3/uL (130-400); RBC 4.02 10x6/uL (4.20-6.10); RDW 22.5 % (11.5-14.5); WBC 14.3 10x3/uL (4.8-10.8)
--- NOTE | 2016-08-04 07:43 | NUR ---
RESTING QUIETLY IN BED CALL LIGHT IN REACH
[2016-08-04 07:49] LABS: ANION GAP 11.9 mmol/L (8-16); CARBON DIOXIDE 24.3 mmol/L (21.0-32.0); CREATININE - SERUM 1.8 mg/dL (0.6-1.3); DIGOXIN 1.4 ng/mL (0.90-2.00); POTASSIUM - SERUM 4.2 mmol/L (3.5-5.1)
--- NOTE | 2016-08-04 10:00 | NUR ---
PATIENT IN REHAB ROOM. WORKING WITH PHYSICAL THERAPIST. DENIES ANY PAIN/DISC AT THIS TIME
[2016-08-04 11:17] VITALS: BP 137/52
--- NOTE | 2016-08-04 12:00 | NUR ---
GLUCOSE LEVEL 192. TWO UNITS OF SLIDING SCALE INSULIN GIVEN
--- NOTE | 2016-08-04 14:18 | NUR ---
PRN MIRALAX GIVEN FOR NO BOWEL MOVEMENT IN THREE DAYS
--- NOTE | 2016-08-04 14:28 | NUR ---
PATIENT ALERT/ORIENT X4. OXYGEN ON AT 4L PER N/C. NURSE ENCOURAGING USE OF INSENTIVE SPIROMETER. PATIENT IS USING CALL LIGHT FOR NEEDS. ANGEL CATH IN PLACE FOR ACUTE RETENSION.
--- NOTE | 2016-08-04 17:00 | NUR ---
GLUCOSE LEVEL 205. FOUR UNITS OF SLIDING SCALE INSULIN GIVEN
[2016-08-04 19:08] VITALS: BP 112/58
--- NOTE | 2016-08-04 19:18 | NUR ---
PT RECIEVED IN BATHROOM. NO CONCERNS NOTED. NO BOWEL MOVEMENT REPORTED AND CONTINUES WITH ANGEL CATHETER. NO CONCERNS MADE KNOWN AT THIS TIME. CALL LIGHT IN REACH. WILL CONTINUE TO OBSERVE.
--- NOTE | 2016-08-05 01:25 | NUR ---
PT IN BED WITH EYES CLOSED AND CHEST RISING. NO SIGN/SYMPTOMS OF DISTRESS NOTED. CALL LIGHT IN REACH. WILL CONTINUE TO OBSERVE.
--- NOTE | 2016-08-05 03:30 | NUR ---
PT IN BED WITH EYES CLOSED AND CHEST RISING. NO SIGN/SYMPTOMS OF DISTRESS NOTED. CALL LIGHT IN REACH.
--- NOTE | 2016-08-05 08:15 | NUR ---
PT RESTING IN BED, VS TAKEN. PT O2 STAYING IN MID 80'S. PT O2 PLACED ON 3.5 TO BRING O2 LEVELS TO 92. PT ENCOURAGED TO COUGH AND DEEP BREATH AT [employer] WHILE WATCHING TV.
--- NOTE | 2016-08-05 10:52 | NUR ---
PT FAMILY AT BEDSIDE. REMINDED PT TO COUGH AND DEEP BREATHE PERIODICALLY. ALSO TOLD FAMILY TO HELP REMIND HIM. MOOK.
--- NOTE | 2016-08-05 13:25 | NUR ---
PT RESTING, EYES CLOSED. BED LOW. CL IN REACH.
[2016-08-05 14:04] VITALS: BP 129/78
--- NOTE | 2016-08-05 17:20 | NUR ---
PT EATING DINNER, DENIES NEEDS.
--- NOTE | 2016-08-05 18:31 | NUR ---
RESTING QUIETLY IN BED CALL LIGHT IN REACH
[2016-08-05 19:00] VITALS: BP 127/38
--- NOTE | 2016-08-05 19:27 | NUR ---
PT RECEIVED IN BED WITH EYES OPEN WATCHING TV. NO CONCERNS OR COMPLAINTS MADE KNOWN AT THIS TIME. CALL LIGHT IN REACH.
--- NOTE | 2016-08-06 00:27 | NUR ---
PT IN BED WITH EYES CLOSED AND CHEST RISING. RECEIVED HS MEDICATIONS PER MAY WITHOUT DIFFICULTY. NO OTHER CONCERNS MADE KNOWN. AT 2320 PT APPEARED RESTLESS WITH O2 SAT CHECKED AT 84%. PT HAD JUST PLACED NASAL CANNULA BACK IN PLACE. PT INSTRUCTED TO COUGH WHICH INCREASED SATURATION TO 92% AND QUICKLY RETURNED TO UPPER 80'S. PT THEN EDUCATED TO TAKE SLOW DEEP BREATHS THROUGHT NOSE AND EXHALE SLOWLY THROUGH MOUTH WITH LIPS PURSED. PT STATED FEELING BETTER AND UNDERSTANDING. PT RETURNED TO BED. CALL LIGHT IN REACH. WILL CONTINUE TO OBSERVE.
--- NOTE | 2016-08-06 04:35 | NUR ---
PT IN BED WITH EYES CLOSED AND CHEST RISING. NO CONCERNS NOTED AT THIS TIME. CALL LIGHT IN REACH.
--- NOTE | 2016-08-06 07:33 | NUR ---
PT FSBS AT 0615 WAS 76 AND GLIPIZIDE HELD. OFFERED SNACK OR JUICE BUT PT REFUSED. REPORTED TO ONCOMING STAFF.
--- NOTE | 2016-08-06 08:11 | NUR ---
PT UP SITTING ON SIDE OF BED EATING BREAKFAST. FAMILY ASSISTING WITH NEEDS. WCTM.
--- NOTE | 2016-08-06 08:32 | NUR ---
SITTING UP EATING BREAKFAST DENIES NEEDS CALL LIGHT IN REACH
--- NOTE | 2016-08-06 09:47 | NUR ---
PT'S O2 SATS REMAIN IN LOW 80'S. RESPIRATORY CONSULTED. PT PLACED ON 10L OXIMIZER, UPDRAFTS AND CHEST XRAY ORDERED. PT O2 SAT NOW 94. WCTM.
[2016-08-06 10:18] VITALS: BP 133/56
--- NOTE | 2016-08-06 12:21 | NUR ---
PT FSBS 71. PT GIVEN ONE CUP OF APPLEJUICE. PT ALSO EATING LUNCH. WCTM.
--- NOTE | 2016-08-06 14:07 | NUR ---
PT RESTING QUIETLY, EYES CLOSED. BED LOW. CL IN REACH.
--- NOTE | 2016-08-06 14:50 | NUR ---
RESPIRATORY IN ROOM. PT NOW ON 15L OXIMIZER.
--- NOTE | 2016-08-06 14:58 | NUR ---
SPOKE WITH DR VELASQUEZ REGARDING XRAY RESULTS. DR VELASQUEZ ORDERED 40 MG IV LASIX. MEDICATION ADMINISTERED. TM.
[2016-08-06 15:25] LABS: BASOPHILS 0.1 % (0-2); EOSINOPHILS 0.3 % (0-7); HEMATOCRIT 27.8 % (42.0-54.0); HEMOGLOBIN 8.7 g/dL (13.5-17.5); IMMATURE GRANULOCYTES 0.5 % (0-5); LYMPHOCYTES 6.2 % (15-50); MCH 22.3 pg (26.0-34.0); MCHC 31.3 g/dL (31.0-37.0); MCV 71.3 fL (80.0-100.0); MEAN PLATELET VOLUME 9.7 fL (7.4-10.4); MONOCYTES 5.2 % (2-11); NEUTROPHILS 87.7 % (40-80); WBC 17.5 10x3/uL (4.8-10.8)
[2016-08-06 15:27] LABS: PLATELET COUNT 377 10x3/uL (130-400)
--- NOTE | 2016-08-06 16:47 | NUR ---
PT O2 SATS BACK DOWN TO LOW 80'S. RESPIRATORY NOTIFIED. O2 BACK UP TO 91. DR ARGUETA CALLED AND MESSAGE LEFT.
--- NOTE | 2016-08-06 16:54 | NUR ---
DR VELASQUEZ CONSULTED. DR VELASQUEZ STATED PT NEEDS TO BE IN ACUTE CARE AND HE WILL CONSULT. CALLED DR ARGUETA AND MESSAGE LEFT.
--- NOTE | 2016-08-06 18:53 | NUR ---
PT DISCHARGED TO CVICU PER DR MITCHELL. PT WAS TRANSFERRED VIA BED ACCOMPANIED BY FAMILY. FAMILY TOOK ALL PT BELONGINGS. REPORT GIVEN TO TORSTEN DEL ROSARIO.
--- NOTE | 2016-08-08 13:44 | NUR ---
LATE ENTRY: DUE TO CHANGE IN MEDICAL CONDTION, PATIENT DISCHARGED FROM REHAB AND ADMITTED TO ACUTE FLOOR
== END 2016-08-06 18:55 | disposition short-term general hospital (02) | DRG 559 ==
LOC: D.REHAB 21:48
PROVIDERS: ADMIT Emergency Medicine
DX: S22.42XD Multiple fractures of ribs, left side, subsequent encounter for fracture with routine healing (principal); J96.01 Acute respiratory failure with hypoxia; D62 Acute posthemorrhagic anemia; E11.649 Type 2 diabetes mellitus with hypoglycemia without coma; R10.9 Unspecified abdominal pain; N40.0 Benign prostatic hyperplasia without lower urinary tract symptoms; N32.89 Other specified disorders of bladder; K22.70 Barrett's esophagus without dysplasia; K29.70 Gastritis, unspecified, without bleeding; K64.8 Other hemorrhoids; W19.XXXD Unspecified fall, subsequent encounter; I48.91 Unspecified atrial fibrillation; I25.10 Atherosclerotic heart disease of native coronary artery without angina pectoris; I12.9 Hypertensive chronic kidney disease with stage 1 through stage 4 chronic kidney disease, or unspecified chronic kidney disease; N18.9 Chronic kidney disease, unspecified

== ENCOUNTER 2016-08-06 18:10 | Inpatient (IN) | payer MEDICARE, BC ==
[~2016-08-06] VITALS: Ht 167.6 cm; Wt 75.0 kg
--- NOTE | ~2016-08-06 | CN ---
PATIENT NAME:MORENO CARRASCO MEDICAL RECORD: [id number] : 42 LOCATION:[facility] ADMIT DATE: 08/06/16 ACCOUNT: [id number] CONSULTING PHYSICIAN: ASHWINI OTT MD REFERRING PHYSICIAN: DORINDA BURTON DO DATE OF CONSULTATION: 08/07/2016 CONSULT REQUESTING PHYSICIAN: Dr. Reshma Davenport. REASON FOR CONSULTATION: Acute hypoxic respiratory failure, pulmonary edema, possible hospital-acquired pneumonia. HISTORY OF PRESENT ILLNESS: Mr. Carrasco is a 75-year-old gentleman who was in the rehab for rehabilitation. The patient became severe shortness of breath and distress, brought up to the ICU, the patient was initially put on BiPAP, but with the diuresis, he significantly improved, now he is on 7 liter oxymizer. Denies any fever and chills. There was cough without much sputum production. He also hears himself wheezing. There are no fever and chill, no night sweats. REVIEW OF SYSTEMS: Mainly in the history of present illness. PAST MEDICAL HISTORY: 1. Hypoglycemia. 2. Microcystic anemia. 3. History of gastrointestinal bleed. 4. Benign prostatic hypertrophy. 5. History of bladder mass. 6. Hypertension. 7. Diabetes. 8. Hypoglycemia. 9. Pastor's esophagus. 10. History of atrial fibrillation. 11. History of transient ischemic attack. 12. History of sick sinus syndrome, status post pacemaker. 13. Coronary artery disease. PAST SURGICAL HISTORY: 1. Cholecystectomy. 2. Status post pacemaker placement. 3. Cardiac catheterization angioplasty in the past. ALLERGIES: There are no known drug allergies. PRESENT MEDICATIONS: [employer] was reviewed. PERSONAL AND SOCIAL HISTORY: The patient is a everyday smoker. He is a nondrinker. FAMILY HISTORY: Noncontributory. PHYSICAL EXAMINATION: GENERAL: Now, the patient is lying comfortably in bed. He is not in acute distress. VITAL SIGNS: The blood pressure 123/45, pulse is 79, respirations 22, temperature 98.2, SPO2 is 90-95% on 7 liter oxymizer. CONSULT REPORT [id number] MORENO CARRASCO HEENT: Conjunctiva is pink. Sclerae nonicteric. NECK: Supple. There is elevated JVD. CHEST: There are bilateral crackles. No wheezing. HEART: Rhythm regular with grade II/ systolic murmur. ABDOMEN: Soft, bowel sounds present. No hepatosplenomegaly. RECTAL: Deferred. EXTREMITIES: No cyanosis, no clubbing, no pedal edema. SKIN: The skin is warm, normal turgor. CENTRAL NERVOUS SYSTEM: The patient is awake and alert. There is no obvious cranial nerve abnormality. The gait was not tested. LABORATORY DATA: CBC: WBC 19.6, hemoglobin 8.8, hematocrit 28.2, the platelet count is 399. Chemistry: Sodium 140, potassium 4.6, BUN is 45, creatinine is 2, proBNP 3665. ABG: the pH was 7.45, pCO2 is 31.9, pO2 was 167, bicarb was 22. The ultrasound of the lower extremity was negative for DVT. The chest radiograph showed bilateral infiltrate. IMPRESSION: 1. Acute hypoxic respiratory failure secondary to pulmonary edema, possible hospital-acquired pneumonia. 2. Congestive heart failure, most likely systolic dysfunction with a proBNP 3665. 3. Suspect chronic obstructive pulmonary disease with a life long history of smoking. The patient is still an active smoker. 4. Gastroesophageal reflux disease with Pastor's esophagus. 5. Coronary artery disease. 6. History of atrial fibrillation status post pacemaker placement. RECOMMENDATION: Continue Lasix, continue cefepime. I will add Levaquin. Follow up labs and chest radiograph in the morning, follow up on a cardiac echo, albuterol/ipratropium nebulizer. Continue methylprednisolone IV. I will add Brovana, budesonide nebulizer. Dr. Davenport thank you for involving me in the care of Mr. Carrasco. Critical care time 45 minutes. TRANSINT:[id number] Voice Confirmation ID: [id number] DOCUMENT ID: [id number] ASHWINI OTT MD CC: RESHMA DAVENPORT DO [id number] DICTATION DATE: 08/07/16 1543 SET UP MACHINIST: 08/07/162053 ADM IN [facility] [address] [place] [address]
--- NOTE | 2016-08-06 18:20 | NUR ---
RECEIVED REPORT FROM REBECCA ON REHAB FLOOR, WAITING TO RECIEVE PT.
--- NOTE | 2016-08-06 18:48 | NUR ---
RECIEVED PT TO UNIT AT THIS TIME. SHORTNESS OF BREATH NOTED. OXIMIZER AT 15L NOTED PT OXYGEN SATURATION AT 92%, BIPAP PLACED AT THIS TIME WITH FIO2 AT 100%. WILL CONTINUE PLAN OF CARE.
[2016-08-06 19:00] VITALS: BP 123/54
[2016-08-06 19:10] VITALS: BP 130/56; BMI 26.7
--- NOTE | 2016-08-06 19:10 | NUR ---
RECEIVED CARE OF PT, ASSESSMENT PER FLOWSHEET. PT ORIENTED TO SELF ONLY, ON 50% BIPAP, PPP, ANGEL CATH PATENT, UO DARK AND CLOUDY, PPP, HR PACED ON MONITOR AT 73, BREATH SOUNDS DIMINISHED BILAT, PT DENIES PAIN, FAMILY AT BEDSIDE.
[2016-08-06 19:17] LABS: BASOPHILS 0.1 % (0-2); EOSINOPHILS 0.3 % (0-7); HEMATOCRIT 28.2 % (42.0-54.0); HEMOGLOBIN 8.8 g/dL (13.5-17.5); IMMATURE GRANULOCYTES 0.6 % (0-5); LYMPHOCYTES 3.1 % (15-50); MCH 22.1 pg (26.0-34.0); MCHC 31.2 g/dL (31.0-37.0); MCV 70.7 fL (80.0-100.0); MEAN PLATELET VOLUME 9.6 fL (7.4-10.4); MONOCYTES 5.3 % (2-11); NEUTROPHILS 90.6 % (40-80); PLATELET COUNT 399 10x3/uL (130-400); RBC 3.99 10x6/uL (4.20-6.10); RDW 23.2 % (11.5-14.5); WBC 19.6 10x3/uL (4.8-10.8)
[2016-08-06 19:50] LABS: CKMB 1.1 U/L (0.0-3.6); CREATINE KINASE 232 UL (21-232)
[2016-08-06 20:00] VITALS: BP 126/60
[2016-08-06 20:22] LABS: MAGNESIUM - SERUM 2.3 mg/dL (1.8-2.4); PHOSPHOROUS 3.9 mg/dL (2.5-4.9)
[2016-08-06 20:35] LABS: ALBUMIN 1.8 g/dL (3.4-5.0); ANION GAP 17.6 mmol/L (8-16); BILIRUBIN - TOTAL 0.5 mg/dL (0.2-1.3); CALCIUM 7.6 mg/dL (8.5-10.1); POTASSIUM - SERUM 4.6 mmol/L (3.5-5.1); PROTEIN - SERUM 6.2 g/dL (6.4-8.2)
[2016-08-06 21:00] VITALS: BP 120/55
[2016-08-06 21:00] LABS: ERYTHROCYTE SEDIMENTATION RATE 99 mm/hr (0-20)
--- NOTE | 2016-08-06 21:15 | NUR ---
DR AMBROCIO IN TO SEE PT, UPDATED, ORDERS RECEIVED.
[2016-08-06 22:00] VITALS: BP 124/41
[2016-08-06 23:00] VITALS: BP 124/48
--- NOTE | 2016-08-06 23:15 | NUR ---
REASSESSMENT PER FLOWSHEET. PT ON 15L OXIMIZER, SAT IN MID 90'S ON MONITOR, POSITIONED FOR COMFORT, VSS.
[2016-08-07] VITALS (24 sets, daily range): BP systolic 105–130; BP diastolic 41–63; Ht 167.6 cm; Wt 75.0 kg
--- NOTE | 2016-08-07 01:15 | NUR ---
PT CONTINUALLY PULLING OXIMIZER AND O2 SAT MONITOR OFF, ATTEMPTING TO PULL IV AND ANGEL OUT, ALL ATTEMPTS TO REORIENT UNSUCCESSFUL, UNABLE TO KEEP LINES CONCEALED, PT PLACED IN BILATERAL SOFT WRIST RESTRAINTS FOR SAFETY.
--- NOTE | 2016-08-07 03:30 | NUR ---
REASSESSMENT PER FLOWSHEET. PT REMAINS ORIENTED ONLY TO SELF, DENIES PAIN OR ANY NEEDS, VSS.
[2016-08-07 04:39] LABS: HEMATOCRIT 26.3 % (42.0-54.0); HEMOGLOBIN 8.2 g/dL (13.5-17.5); MCH 21.9 pg (26.0-34.0); MCHC 31.2 g/dL (31.0-37.0); MCV 70.3 fL (80.0-100.0); MEAN PLATELET VOLUME 9.8 fL (7.4-10.4); PLATELET COUNT 401 10x3/uL (130-400); RBC 3.74 10x6/uL (4.20-6.10); RDW 22.8 % (11.5-14.5); WBC 20.3 10x3/uL (4.8-10.8)
[2016-08-07 04:42] LABS: ALBUMIN 1.7 g/dL (3.4-5.0); ANION GAP 14.1 mmol/L (8-16); BILIRUBIN - TOTAL 0.72 mg/dL (0.2-1.3); CALCIUM 7.7 mg/dL (8.5-10.1); CARBON DIOXIDE 23.5 mmol/L (21.0-32.0); CREATININE - SERUM 1.7 mg/dL (0.6-1.3); POTASSIUM - SERUM 4.6 mmol/L (3.5-5.1)
[2016-08-07 05:12] LABS: LYMPHOCYTES 3 % (15-50); NEUTROPHILS 95 % (40-80); PLATELET ESTIMATE NORMAL; PLATELET MORPHOLOGY GIANT PLTS PRESENT
--- NOTE | 2016-08-07 06:03 | NUR ---
PT RESTING IN BED WITH EYES CLOSED, VSS, CONT POC.
--- NOTE | 2016-08-07 06:30 | NUR ---
DR AMBROCIO CALLED REGARDING PT C/O OF BLE PAIN, NOTIFIED OF AM ABG AND LAB RESULTS, ORDERS RECEIVED.
--- NOTE | 2016-08-07 06:36 | NUR ---
RADIOLOGY CALLED AND INFORMED OF U/S ORDER, STATED THAT HE WOULD CALL THEM IN PER FLORENCE.
--- NOTE | 2016-08-07 07:30 | NUR ---
RECEIVED PT FOR CARE. PT RESTING IN BED WITH EYES CLOSED. RESP EQUAL AND UNLABORED. CALL LIGHT WITHIN REACH. RESP THERAPY WEANING OXIMIZER PER ORDERS. PT TOLERATING WELL. VSS AT THIS TIME.
--- NOTE | 2016-08-07 11:13 | HP ---
PATIENT: MORENO CARRASCO MEDICAL RECORD: [id number] ACCOUNT: [id number] LOCATION:[facility] : 41 ADMISSION DATE: 08/06/16 HISTORY AND PHYSICAL EXAMINATION Admission History and Physical HISTORY OF PRESENT ILLNESS: A 75-year-old male admitted from rehab downstairs where he had progressive shortness of breath for the past 2 days was hypoxemic. PAST MEDICAL HISTORY: Hypoglycemia, microcytic anemia, abdominal pain, GI bleed, enlarged prostate, bladder mass, hypertension, diabetes with hypoglycemic episodes, short segment of Pastor esophagitis, also history of TIA, AFib, has pacemaker in place, coronary artery disease. PAST SURGICAL HISTORY: Cholecystectomy, pacemaker, angioplasty, recent heart catheterization. MEDICATIONS: Reviewed as per med rec. SOCIAL HISTORY: No current alcohol or tobacco use. FAMILY HISTORY: Noncontributory. REVIEW OF SYSTEMS: has been in rehab secondary to a fall with multiple rib fractures, has had limited participation in the last 2 days due to progressive shortness of breath. HEENT: Denies cephalgia, visual changes, tinnitus, epistaxis or dysphagia. CARDIOVASCULAR: Denies chest pain, does admit to shortness of breath and increased fatigue. PULMONARY: Denies hemoptysis, denies night sweats. Does have increasing shortness of breath. GASTROINTESTINAL: Denies hematemesis, hematochezia or melena. Does have a significant GI history as above. GENITOURINARY: Denies dysuria. Has Mtz to gravity and place, has a history of enlarged prostate and bladder lesion. MUSCULOSKELETAL: Recent multiple rib fractures as noted above, fall risk, frequent falls. PHYSICAL EXAMINATION: VITAL SIGNS: Blood pressure is 120/55, heart rate 72, respirations 17, heart rate 90 HEENT: Head is normocephalic, atraumatic. Eyes: Pupils equal, round, reactive to light and accommodation. Extraocular muscles intact. Conjunctiva was not injected. Ears: Canals patent, TMs are intact. Nose: Nares patent without drainage. Throat: No erythema, no exudates. NECK: Supple. No lymphadenopathy, no JVD. HEART: Regular rate and rhythm. No S3, S4, no rub. LUNGS: Diminished breath sounds. Breathing is nonlabored with supplemental O2 via oxymizer. ABDOMEN: Soft, nontender. Bowel sounds all 4 quadrants. GENITOURINARY: Mtz to gravity. MUSCULOSKELETAL: No acute changes. LABORATORY DATA: ABG shows a pH of 7.451, pCO2 of 31.9, pO2 of 167, bicarbonate HISTORY AND PHYSICAL [id number] PUCHALSKI,MORENO 22.2, hemoglobin is 9.3, hematocrit 27. Chemistry shows a potassium 4.5, glucose 67, calcium of 1.08. Ionized sed rate is 99. Sodium of 140, BUN 45, creatinine 2.0. Chest x-ray shows CHF. EKG shows atrial paced rhythm, rate is 75, abnormal EKG. CK is 232. CK-MB is 1.1. Troponin 0.03. ProBNP is elevated at 3665. ASSESSMENT AND PLAN: 1. Shortness of breath, congestive heart failure, generalized weakness, general decline. The patient is admitted to the cardiac ICU. Dr. Coronado was consulted. We will obtain echocardiogram. Supportive care. Cautious diuresis. Accurate I's and O's. We will check a D-dimer medications adjusted. 2. Diabetes. We will discontinue his Glucotrol, continue sliding scale insulin, concern for hypoglycemic episodes. Discussed case at length with patient family wants no heroic measures, DNR code status. TRANSINT:[id number] Voice Confirmation ID: [id number] DOCUMENT ID: [id number] RESHMA DAVENPORT DO at 1113 CC: [id number] DICTATION DATE: 08/06/162107 CELL STRIPPER: 08/07/16 0113 ADM IN [facility] [address] [place] [address]
--- NOTE | 2016-08-07 11:34 | NUR ---
PHYSICAL THERAPY AT BEDSIDE. PT ASSISTED UP TO CHAIR. TOLERATED WELL. CALL LIGHT WITHIN REACH. PT GIVEN CUP OF COFFEE PER REQUEST.
--- NOTE | 2016-08-07 12:52 | NUR ---
PT'S AT BEDSIDE. PT HAD COMPLETE BATH AND LINEN CHANGE. TOLERATED WELL. VSS AT THIS TIME. PT SITTING UP IN CHAIR. NO NEEDS AT THIS TIME.
--- NOTE | 2016-08-07 13:51 | NUR ---
PT ASSISTED BACK TO BED. CALL LIGHT WITHIN REACH. LIGHTS TURNED DOWN. PT REQUESTING TO TAKE A NAP. SIDE RAILS UP X3.
--- NOTE | 2016-08-07 15:37 | NUR ---
SCHOOL CLERK AT BEDSIDE TO COMPLETE CARDIAC ECHO
--- NOTE | 2016-08-07 19:00 | NUR ---
REPORT RECEIVED AND ASSESSMENT COMPLETED. SEE FLOWSHEET FOR FULL DETAILS. FAMILY IN ROOM. DISCUSSED PATIENT STATUS AT THIS TIME. VSS. WILL MONITOR
--- NOTE | 2016-08-07 21:00 | NUR ---
2100 MEDS GIVEN. NO OTHER CHANGES AT THIS TIME. WILL CONTINUE TO MONITOR
--- NOTE | 2016-08-07 23:00 | NUR ---
REASSESSMENT COMPLETED SEE FLOWSHEET FOR FULL DETAILS. AFTER COMPLETION OF ASSESSMENT, PT REQUESTED LIGHTS BE TURNED OFF FOR SLEEP. TURNED OF LIGHTS. CALL LIGHT IN REACH. BED IN LOW POSITION. RAIL UP X 2.VSS. WILL MONITOR
[2016-08-08] VITALS (25 sets, daily range): BP systolic 92–123; BP diastolic 31–55
--- NOTE | 2016-08-08 01:00 | NUR ---
FSBS RECHECKED 422. TREATED PER SLIDING SCALE. NO OTHER CHANGES IN STATUS AT THIS TIME.
--- NOTE | 2016-08-08 01:00 | NUR ---
NO CHANGES IN STATUS AT THIS TIME. VSS WILL MONITOR
--- NOTE | 2016-08-08 03:00 | NUR ---
REASSESSMENT COMPLETED. SEE FLOWSHEET FOR FULL DETAILS. NO CHANGE IN PT STATUS AT THIS TIME. VSS. WILL CONTINUE TO MONITOR
[2016-08-08 03:32] LABS: BASOPHILS 0 % (0-2); EOSINOPHILS 0 % (0-7); HEMATOCRIT 24.8 % (42.0-54.0); HEMOGLOBIN 7.8 g/dL (13.5-17.5); IMMATURE GRANULOCYTES 0.4 % (0-5); LYMPHOCYTES 2.8 % (15-50); MCH 21.8 pg (26.0-34.0); MCHC 31.5 g/dL (31.0-37.0); MCV 69.5 fL (80.0-100.0); MEAN PLATELET VOLUME 9.7 fL (7.4-10.4); MONOCYTES 1.8 % (2-11); PLATELET COUNT 468 10x3/uL (130-400); RBC 3.57 10x6/uL (4.20-6.10); RDW 22.5 % (11.5-14.5); WBC 26.7 10x3/uL (4.8-10.8)
[2016-08-08 03:33] LABS: CARBON DIOXIDE 23.7 mmol/L (21.0-32.0); CREATININE - SERUM 2.1 mg/dL (0.6-1.3); MAGNESIUM - SERUM 2.6 mg/dL (1.8-2.4); POTASSIUM - SERUM 3.7 mmol/L (3.5-5.1)
--- NOTE | 2016-08-08 04:59 | NUR ---
i&o COLLECTED AND ENTERED. PT WEIGHT 168 LBS. 1100 OUT 299 IN. VSS. WILL MONITOR
[2016-08-08 08:37] LABS: % SATURATION 1 % (15-55); TOTAL IRON BIND CAPACITY 193 ug/dl (260-445); UNSAT IRON BIND CAPACITY 191 ug/dl (150-375)
[2016-08-08 08:41] LABS: IRON 2 ug/dl (35-150)
--- NOTE | 2016-08-08 09:50 | NUR ---
DR. NARVAEZ CALLED AND NOTIFIED OF NURSING ORDER RE: D/C'ING LOVENOX DUE TO PT'S HISTORY OF GI BLEED. SHE DOES NOT WANT TO D/C LOVENOX AT THIS TIME. ORDERS RECEIVED TO ESTHER STOOL WITH NEXT BM.
--- NOTE | 2016-08-08 12:00 | NUR ---
PT'S FAMILY AT BEDSIDE. UPDATED ON PT'S STATUS. NO OTHER NEEDS AT THIS TIME.
[2016-08-08 13:29] LABS: HEMATOCRIT 29.5 % (42.0-54.0); HEMOGLOBIN 9.3 g/dL (13.5-17.5)
--- NOTE | 2016-08-08 14:30 | NUR ---
DR. BURTON'S OFFICE CALLED AND NOTIFIED OF CRITICAL GLUCOSE LABS.
--- NOTE | 2016-08-08 15:30 | NUR ---
ASSESSMENT COMPLETED. NO CHANGES NOTED.
--- NOTE | 2016-08-08 18:05 | NUR ---
PT'S FAMILY AT BEDSIDE. UPDATED ON PT'S STATUS. NO S/S OF RESP DISTRESS NOTED.
[2016-08-08 18:36] LABS: APPEARANCE CLEAR (CLEAR); BILIRUBIN NEGATIVE (NEGATIVE); COLOR YELLOW (YELLOW); GLUCOSE NEGATIVE (NEGATIVE); KETONE NEGATIVE (NEGATIVE); LEUKOCYTE ESTERASE NEGATIVE (NEGATIVE); NITRITE NEGATIVE (NEGATIVE); PROTEIN NEGATIVE (NEGATIVE); RED CELLS - URINE 0-5 /hpf (0-5); SPECIFIC GRAVITY 1.015 (1.005-1.020); UROBILINOGEN NORMAL (NORMAL)
[2016-08-08 18:45] LABS: WHITE CELLS - URINE OCC /hpf (0-5)
--- NOTE | 2016-08-08 19:00 | NUR ---
REPORT RECEIVED AND ASSESSMENT COMPLETED. SEE FLOWSHEET FOR FULL DETAILS. VSS. FAMILY IN ROOM. UPDATED ON STATUS AND REPOSITIONED PT AT THIS TIME. WILL CONTINUE TO MONITOR THROUGHOUT SHIFT.
--- NOTE | 2016-08-08 21:00 | NUR ---
2100 MEDS GIVEN. NO OTHER CHANGES IN STATUS AT THIS TIME. PT FSBS 321. INSULIN GIVEN PER SLIDING SCALE. 15 UNITS GIVEN SCHEDULED
--- NOTE | 2016-08-08 23:00 | NUR ---
REASSESSMENT COMPLETED. SEE FLOWSHEET FOR FULL DETAILS
[2016-08-09] VITALS (18 sets, daily range): BP systolic 102–168; BP diastolic 32–68
--- NOTE | 2016-08-09 01:06 | NUR ---
PT SLEEPIN IN ROOM. NO CHANGES AT THIS TIME VSS WILL MONITOR
--- NOTE | 2016-08-09 03:00 | NUR ---
REASSESSMENT COMPLETED. SEE FLOWSHEET FOR FULL DETAILS. NO OTHER CHANGES IN STATUS AT THIS TIME. RADIOLOGY IN ROOM. BED IN LOW POSITION SIDE RAILS UP X 2 VSS WILL CONTINUE TO MONITOR THROUGHOUT SHIFT
[2016-08-09 04:29] LABS: BASOPHILS 0 % (0-2); EOSINOPHILS 0 % (0-7); HEMATOCRIT 25.7 % (42.0-54.0); HEMOGLOBIN 8.1 g/dL (13.5-17.5); IMMATURE GRANULOCYTES 0.5 % (0-5); LYMPHOCYTES 0.7 % (15-50); MCH 21.6 pg (26.0-34.0); MCHC 31.5 g/dL (31.0-37.0); MCV 68.5 fL (80.0-100.0); MEAN PLATELET VOLUME 9.8 fL (7.4-10.4); MONOCYTES 2.3 % (2-11); NEUTROPHILS 96.5 % (40-80); PLATELET COUNT 584 10x3/uL (130-400); RBC 3.75 10x6/uL (4.20-6.10); RDW 22.7 % (11.5-14.5)
[2016-08-09 04:47] LABS: ANION GAP 14.6 mmol/L (8-16); CALCIUM 7.7 mg/dL (8.5-10.1); CARBON DIOXIDE 22.1 mmol/L (21.0-32.0); MAGNESIUM - SERUM 2.3 mg/dL (1.8-2.4); POTASSIUM - SERUM 3.7 mmol/L (3.5-5.1)
[2016-08-09 04:53] LABS: CREATININE - SERUM 2.7 mg/dL (0.6-1.3)
--- NOTE | 2016-08-09 05:04 | NUR ---
PT O2 SAT DROPPED. INCRESED O2 TO 5 L NC. NO CHANGE IN SAT. PLACED ON OXYMISER, AND INCREASED O2 HAD PT USE IS, TURN COUGH DEEP BREATH. NO CHANGE IN SAT. NOTICED PT HAD MOUTH OPEN WHEN BREATHING. HAD PT CLOSE MOUTH. SAT INCREASED TO 95. RESPIRATORY THERAPY NOTIFIED. PT PLACED BACK ON NC BY RESPIRATORY. SAT STILL 93 AT THIS TIME. PT INSTRUCTED BY BOTH RN AND REPIRATORY TO KEEP MOUTH CLOSED WHEN BREATHING. WILL CONTINUE TO MONITOR FOR CHANGES
--- NOTE | 2016-08-09 07:33 | NUR ---
BEDSIDE REPORT RECEIVED. FAMILY AT BEDSIDE TALKING WITH PATIENT. AWAKE, ALERT AND ORIENTED. NC 4L, ALL VITALS WNL. AM ASSESSMENT DOCUMENTED PER FLOWSHEET. DENIES NEEDS AT THIS TIME. SITTING UP IN BED EATING BREAKFAST.
--- NOTE | 2016-08-09 07:49 | NUR ---
DR. BURTON ON FLOOR, VISITING WITH FAMILY. V/O TO CHANGE LASIX ORDER FRO Q8 TO Q12.
--- NOTE | 2016-08-09 08:34 | NUR ---
AM MEDS GIVEN, ORAL CARE PERFORMED INDEPENDENTLY BY PATIENT. REPOSITIONED IN BED.
[2016-08-09 09:17] LABS: ERYTHROPOIETIN 4.2 mIU/mL (2.6-18.5)
--- NOTE | 2016-08-09 09:36 | NUR ---
NUTRITION MONITORING & EVAL CHART REVIEWED. NURSING REPORTS PT TOLERATING REG DIET. INTAKE RECORDS SHOW ~25% INTAKE RECENT MEALS. WILL CONTINUE TO PROVIDE DIET, MONITOR INTAKE. RD FOLLOWING
--- NOTE | 2016-08-09 09:51 | NUR ---
UP TO BEDSIDE CHAIR WITH ASSIST FROM YULY WITH PT. VITALS ALL WNL. LINENS ON BED CHANGED WHILE UP. WILL MONITOR O2 CLOSELY WHILE UP IN CHAIR.
--- NOTE | 2016-08-09 11:31 | EC ---
PATIENT:MORENO CARRASCO DATE OF SERVICE: 08/06/16 SEX: M MEDICAL RECORD: [id number] DATE OF : 41 [facility] AGE OF PATIENT: 75 ADMISSION DATE: 08/06/16 REFERRING PHYSICIAN: INTERPRETING PHYSICIAN: GLADYS KANG MD ECHOCARDIOGRAM REPORT ECHO CHARGES 4 ECHO COMPLETE CLINICAL DIAGNOSIS: CHF ECHOCARDIOGRAPHIC MEASUREMENTS (adult normal given) AC root (d.<3.7cm) 3.7 LV Septum d (<1.2 cm> 1.2 Valve Excursion 2.6 LV Septum (systole) 2.2 Left Atria (s.<4.0cm> 4.9 LVPW d(<1.2cm) 1.2 RV (d.<2.3cm) 2.9 LVPW (sytole) 2.0 LV diastole(<5.6CM) 6.4 MV E-F(>70mm/sec) LV systole 3.1 LVOT Diameter 2.2 MV exc.(>10mm) Est.ejection fraction (50-75%) Pericardial Effusion N DOPPLER: LVIT A 86.0 E 97.0 LA RVSP 27.0 LVOT 141 AOP1/2T Asc. Ao 176 RVOT 117 RA PA 157 AV Gradient Peak 12.4 AV Mean 6.3 AV Area 2.9 MV Gradient Peak 4.1 MV Mean 1.8 MV Area COMMENTS: Data Integration Analyst: Mimi KRAMEROE Basic Combatant Swimmer:1 Dr. Kang TAPE# PACS DATE OF SERVICE: 08/07/2016 Echocardiogram FINDINGS: 1. Left ventricular chamber size is within normal limits. Left ventricular systolic function is normal. Overall ejection fraction estimated at 60%. 2. Left atrium is enlarged at 4.9 cm. Right atrium and right ventricular chamber sizes are as well mildly dilated. 3. Valvular structures have normal structure and motion. ECHOCARDIOGRAM REPORT [id number] MORENO CARRASCO 4. Doppler interrogation only reveals trace to mild mitral regurgitation, no other valvular insufficiency or stenosis. Pulmonary systolic pressure is normal estimated at 29 mmHg. 5. No evidence of pericardial effusion or left ventricular thrombus. TRANSINT:[id number] Voice Confirmation ID: [id number] DOCUMENT ID: [id number] GLADYS KANG MD at 1131 CC: [id number] DICTATION DATE: 08/08/16 1247 COMBUSTION ANALYST: 08/08/16 1640 ADM IN [facility] [address] [place] [id number]
--- NOTE | 2016-08-09 12:16 | NUR ---
FSBS COVERED PER SLIDING SCALE. REMAINS UP IN BEDSIDE CHAIR. ALL VITALS WNL. EATING LUNCH. DENIES NEEDS AT THIS TIME.
--- NOTE | 2016-08-09 12:30 | NUR ---
1100 REASSESSMENT DOCUMENTED PER FLOWSHEET
--- NOTE | 2016-08-09 13:02 | NUR ---
BACK TO BED FROM BEDSIDE CHAIR WITH ASSIST FROM YULY WITH PT. ALL VITALS WNL.
--- NOTE | 2016-08-09 13:06 | NUR ---
PER JERMAN CERRATO TO TRANSFER TO [facility]
--- NOTE | 2016-08-09 13:54 | NUR ---
PER DR. NARVAEZ..OK TO TRANSFER TO FLOOR
--- NOTE | 2016-08-09 14:24 | NUR ---
RESTING WITH EYES CLOSED, ALL VITALS WNL.
[2016-08-09] MEDS ORDERED: PLAVIX75 MG PO (15:28)
[2016-08-09] MEDS ORDERED: HYDROCODON-ACE1 EAC7 PO (15:31)
[2016-08-09] MEDS ORDERED: MEGACE40 MG PO (15:31)
[2016-08-09] MEDS ORDERED: LIPITOR20 MG PO (15:32)
[2016-08-09] MEDS ORDERED: JANUVIA100 MG PO (15:33)
[2016-08-09] MEDS ORDERED: GLUCOTROL XL 1010 MG PO (15:34)
--- NOTE | 2016-08-09 18:14 | NUR ---
1630 PATIENT SLEEPING, DINNER PLACED ON BEDSIDE TABLE. ALL VITALS WNL. 1730 PATIENT AWAKE, SITTING UP IN BED EATING DINNER. DENIES NEEDS AT THIS TIME. 1800 FAMILY AT BEDSIDE, PATIENT ALERT AND TALKING.
--- NOTE | 2016-08-09 19:00 | NUR ---
REPORT RECEIVED AND ASSESSMENT COMPLETED. SEE FLOWSHEET FOR FULL DETAILS. PT FAMILY IN ROOM AT THIS TIME. VSS. WILL MONITOR
--- NOTE | 2016-08-09 21:00 | NUR ---
2100 MEDS GIVEN. NO OTHER CHANGES AT THIS TIME.
--- NOTE | 2016-08-09 23:07 | NUR ---
PT ASSISTED TO BSC.
[2016-08-10] VITALS: BP 129/45
--- NOTE | 2016-08-10 00:37 | NUR ---
PT XFER TO 2101 AT THIS TIME. RECEIVED BY
--- NOTE | 2016-08-10 00:52 | NUR ---
RECEIVED FROM ICU, REPORT CALL BY TORRES, PT 02-4L, IV-FFA-NS @10, PLACED BOX ALARM ON PT, SHOW PT HOW TO USE CALL LIGHT, BED IS LOW, SR2, WILL CONTINUE TO MONITOR
--- NOTE | 2016-08-10 01:38 | NUR ---
PT SLEEPING, CALL LIGHT IN REACH, BOX ALARM IS ON, WILL CONTINUE PLAN OF CARE
--- NOTE | 2016-08-10 03:36 | NUR ---
SMASHER HAND AT BEDSIDE TO OBTAIN VITALS, WILL CONTINUE WITH PLAN OF CARE.
[2016-08-10 04:00] VITALS: BP 111/47
[2016-08-10 04:36] LABS: BASOPHILS 0 % (0-2); EOSINOPHILS 0 % (0-7); HEMATOCRIT 24.8 % (42.0-54.0); IMMATURE GRANULOCYTES 0.4 % (0-5); LYMPHOCYTES 1.9 % (15-50); MCHC 32.3 g/dL (31.0-37.0); MCV 68.1 fL (80.0-100.0); MEAN PLATELET VOLUME 9.6 fL (7.4-10.4); MONOCYTES 5.1 % (2-11); NEUTROPHILS 92.6 % (40-80); PLATELET COUNT 589 10x3/uL (130-400); RBC 3.64 10x6/uL (4.20-6.10); RDW 22.7 % (11.5-14.5)
[2016-08-10 04:50] LABS: ANION GAP 12.6 mmol/L (8-16); CALCIUM 7.6 mg/dL (8.5-10.1); CARBON DIOXIDE 22.4 mmol/L (21.0-32.0); CREATININE - SERUM 2.3 mg/dL (0.6-1.3); MAGNESIUM - SERUM 2.2 mg/dL (1.8-2.4)
--- NOTE | 2016-08-10 07:44 | NUR ---
AM ROUNDING- RECEIVED REPORT FROM SCRUBBER SYSTEM ATTENDANT NURSE ARIE. PT IS CURRENTLY SITTING UP IN BED WITH EYES OPEN RESTING. FAMILY MEMBERS AT BEDSIDE. ON 02 AT 4L VIA NC. NO MONITOR. IV SEEN TO LEFT FOREARM WITH NS RUNNING AT KVO (10CC). ANGEL CATHETER SEEN WITH CLOUDY URINE. ON EP, WILL CHECK AM LABS AND TX PER PROTOCOL. DNR PER REPORT. ON LOVENOX INJECTION FOR DVT PREVENTION. NO NEED AT CURRENT TIME. WILL CONTINUE TO MONITOR AND CONTINUE WITH PLAN OF CARE.
[2016-08-10 08:22] VITALS: BP 119/51
--- NOTE | 2016-08-10 10:32 | NUR ---
Nutrition follow-up: Diet: ADA consistent CHO low sodium PO intake ~25% of meals at this time. Labs reviewed Glucose running high Wt: 165# PO intake is poor at this time. RDN will order Glucerna Jike BID RDN following.
[2016-08-10 12:26] VITALS: BP 116/45
--- NOTE | 2016-08-10 13:30 | NUR ---
Patient Name: MORENO CARRASCO Admission Status: Elective Accout number: [id number] Admission Date: 08-06-2016 : 1941 Admission Diagnosis:SHORTNESS OF BREATH Attending: KONSTANTIN Current LOS: 4 Anticipated DC Date: Planned Disposition: Inpatient Rehab Facility Primary Insurance: MEDICARE A & B Discharge Planning Comments: CM MET WITH PATIENT IN REGARDS TO DISCHARGE PLANNING/NEEDS. AT TIMES UNDERSTANDING THE PATIENT WAS DIFFICULT SECONDARY TO PATIENT TALKING IN TWO DIFFERENT LANGUAGES (YAKUT IS NOT FIRST LANGUAGE). PATIENT STATED HE THOUGHT HE WAS TO RETURN TO REHAB DOWNSTAIRS. TALKED WITH TORSTEN MAHAN IN THE IPR AND SHE STATED SINCE HE HAS BEEN GONE FOR OVER 72 HOURS HE WOULD HAVE TO BE REEVALUATED. PATIENT SAID HIS WOULD TAKE HIM HOME ON DISCHARGE, FLORIAN CARRASCO, . HE HAS A NON ROLLING WALKER AT HOME AND IS UNSURE AT THIS TIME IF HE WILL NEED ANYTHING ELSE. PATIENT STATED HIS HOME ENVIRONMENT IS SAFE TO RETURN TO. HE HAS NO STAIRS THAT LEAD INTO HIS HOUSE, BUT STATED THAT THERE IS A SECOND FLOOR THAT IS NOT USED. CM WILL CONTNIUE TO FOLLOW AND ASSIST WITH DISCHARGE PLANNING/NEEDS. Legal Investigator: Alisia Cross Is the patient Alert and Oriented? Yes * How many steps to enter\exit or inside your home? NONE * PCP DR BURTON * [facility]acy [facility] * Preadmission Environment Acute Inpatient Rehab * Facility Name [facility] * ADLs Partial Dependent * Partial ADLs (Assistance needed) Ambulation Bathing Medication Management Transfers * Equipment Glucometer Walker * List name and contact numbers for known caregivers / representatives who currently or will assist patient after discharge: FLORIAN CARRASCO, , * Community resources currently utilized None * Additional services required to return to the preadmission environment? Yes * Can the patient safely return to the preadmission environment? Yes * Has this patient been hospitalized within the prior 30 days at any hospital? Yes
--- NOTE | 2016-08-10 15:13 | NUR ---
I HAVE BEEN CLAMPING PTS ANGEL CATHETER (FOR BLADDER TRAINING ORDERED) THROUGHOUT SHIFT. EVERYTIME I GO TO UNCLAMP PTS ANGEL CATHETER I ASK PT IF HE FEELS URGE TO VOID, PT STATES "NO".
[2016-08-10 16:30] VITALS: BP 117/48
--- NOTE | 2016-08-10 18:53 | NUR ---
PT IS CURRENTLY LAYING IN BED ON BACK WITH EYES CLOSED RESTING. DENIES ANY NEED AT CURRENT TIME. WILL CONTINUE TO MONITOR.
[2016-08-10 19:00] VITALS: BP 124/45
--- NOTE | 2016-08-10 19:35 | NUR ---
AWAKE/ALERT TALKING TO VISITORS PRESENT IN ROOM. DENIES PAIN OR ANY NEEDS. ON 02 AT 4L/NC. RR EVEN U/L. IV IN L FA INTACT WITH NS INFUSING AT 10ML/HR. ANGEL PATENT WITH DARK TIFFANI URINE DRAINING. ORIENTED TO CALL LIGHT FOR ANY NEEDS.
--- NOTE | 2016-08-10 22:00 | NUR ---
ADMIN SCHED MEDS AND INSULINS PER ORDER. UNCLAMPED ANGEL TO ALLOW URINE TO DRAIN. STATED "NO" TO INQUIRY IF HE FELT THE URGE TO URINATE.
[2016-08-11] VITALS: BP 123/91
--- NOTE | 2016-08-11 00:37 | NUR ---
UNCLAMPED ANGEL TO DRAIN.
--- NOTE | 2016-08-11 02:56 | NUR ---
RESTING ON RIGHT SIDE WITH EYES CLOSED. RR 16 EVEN U/L. NO S/S OF PAIN OR DISCOMFORT.
[2016-08-11 04:00] VITALS: BP 144/97
[2016-08-11 04:56] LABS: BASOPHILS 0.1 % (0-2); EOSINOPHILS 0.6 % (0-7); HEMATOCRIT 25.6 % (42.0-54.0); HEMOGLOBIN 8.3 g/dL (13.5-17.5); IMMATURE GRANULOCYTES 2.5 % (0-5); LYMPHOCYTES 4.5 % (15-50); MCHC 32.4 g/dL (31.0-37.0); MCV 67.9 fL (80.0-100.0); MEAN PLATELET VOLUME 9.5 fL (7.4-10.4); MONOCYTES 4.8 % (2-11); NEUTROPHILS 87.5 % (40-80); PLATELET COUNT 588 10x3/uL (130-400); RBC 3.77 10x6/uL (4.20-6.10); RDW 22.9 % (11.5-14.5); WBC 17.9 10x3/uL (4.8-10.8)
[2016-08-11 05:09] LABS: ANION GAP 13.5 mmol/L (8-16); CALCIUM 7.7 mg/dL (8.5-10.1); CREATININE - SERUM 1.8 mg/dL (0.6-1.3); MAGNESIUM - SERUM 2.2 mg/dL (1.8-2.4); PHOSPHOROUS 3.3 mg/dL (2.5-4.9); POTASSIUM - SERUM 4.5 mmol/L (3.5-5.1)
--- NOTE | 2016-08-11 05:10 | NUR ---
RECEIVING UPDRAFT TX. UNCLAMPED ANGEL TO DRAIN. DID NOT FEEL THE URGE TO URINATE.
--- NOTE | 2016-08-11 07:33 | NUR ---
AM ROUNDING- RECEIVED REPORT FROM CERTIFED REFRIGERATION OPERATOR NURSE REYNA. PT IS CURRENLY LAYING IN BED ON BACK WITH EYES OPEN RESTING. DR. BURTON IN ROOM CURRENTLY MAKING ROUNDS. I INFORMED DR. BURTON THAT YESTERDAY ON SHIFT WE HAD TROUBLE GETTING PT OUT OF BED DUE TO PT SHAKING. I INFORMED DR. BURTON THAT THERE ARE NEW ORDERED FOR PTS ANGEL CATHETER TO BE REMOVED AND IM NOT SURE IF THATS THE BEST IDEA DUE TO PT WANTING TO GET OUT OF BED TO GO TO BATHROOM IF HAVING NO ANGEL AND IT BEING A FALL RISK (DUE TO FREQUENT SHAKING UPON GETTING OUT OF BED). DR. BURTON STATES TO HOLD OFF ON D/C ANGEL CATHETER AT THIS TIME. PT IS A DNR. ON EP, WILL CHECK AM LABS AND TX PER PROTOCOL. ON 02 AT 4L VIA NC. NO MONITOR. IV SEEN TO LEFT FOREARM WITH NS RUNNING AT 10CC. ANGEL CATHETER SEEN WITH CONCENTRATED/ DARK COLORED URINE. NO NEED AT CURRENT TIME. WILL CONTINUE TO MONITOR AND CONTINUE WITH PLAN OF CARE.
[2016-08-11 07:56] VITALS: BP 127/49
--- NOTE | 2016-08-11 08:54 | NUR ---
Patient Name: MORENO CARRASCO Encounter No: [id number] : 1940 Primary Insurance: MEDICARE A & B Anticipated DC Date: Planned Disposition: Inpatient Rehab Facility External Planned Provider: [facility] DCP follow-up note: CM RECEIVED ORDER FOR REHAB PLACEMENT, MET WITH PT IN ROOM. PT REPORTS HE WOULD LKKE TO RETURN TO [facility] INPATIENT [facility]AB IF POSSIBLE. CM DISCUSSED ORDER WITH DOCTORS NOTE OF PREFERENCE OF [facility]. PT REPORTS THAT TO BE HIS SECOND CHOICE FOR REHAB, HE IS NOT INTERESTED IN [facility]. CHOICE SIGNED, IMPORTANT MESSAGE FROM [employer]ARE PROVIDED AND EXPLAINED. CM FAXED REFERRAL TO [facility] VIA CLINICAL LIAISON, DEENA, . CM WAITING INPATIENT REHAB PRESCREENING RESULT AND ADMISSION DETERMINATION FROM PT'S SECOND CHOICE FOR REHAB, [facility]. Inder Acuña, CASE MANGEMENT
--- NOTE | 2016-08-11 11:15 | NUR ---
Rehab prescreening consult recieved and the patient was visited. He is well known from a previous stay in rehab. He meets criteria and wants to return to complete his therapy. He has a consult with Dr De Souza that is pending. If all physicians agree he will be accepted to the IRF today. This was relayed to the Melia Cross RN. Cindi Osborn RN Clinical Liaison, Rehab
[2016-08-11 11:19] LABS: SPE - A/G RATIO 0.6 (0.7-1.7); SPE - ALBUMIN 2.3 g/dL (2.9-4.4); SPE - ALPHA-1 GLOBULIN 0.4 g/dL (0.0-0.4); SPE - ALPHA-2 GLOBULIN 1.2 g/dL (0.4-1.0); SPE - BETA GLOBULIN 0.9 g/dL (0.7-1.3); SPE - GAMMA GLOBULIN 1.3 g/dL (0.4-1.8); SPE - M-SPIKE Not Observed g/dL (Not Observed); SPE - TOTAL PROTEIN 6.1 g/dL (6.0-8.5)
--- NOTE | 2016-08-11 11:41 | NUR ---
THERAPY IS IN PTS ROOM TRYING TO GET PT UP TO BEDSIDE COMMODE. PT HAS VERY UNSTEADY GATE AND IS SHAKING TREMEDOUSLY. ASSISTED THERAPY WITH GETTING PT TO BEDSIDE COMMODE AND HAD TO PLACE PT BACK IN BED DUE TO TREMORS. PT IS TEARY EYES ABOUT SITUATION. THERAPY PLACED PT BACK ON BEDSIDE COMMODE. AWAIT PT TO [facility] NOW.
--- NOTE | 2016-08-11 12:12 | NUR ---
CALLED DR. RAMIREZ OFFICE TO INFORM HIM OF PTS BLOOD SUGAR ORDERED BY SLIDING SCALE. WILL AWAIT ANSWER AND CONTINUE TO MONITOR.
--- NOTE | 2016-08-11 12:36 | NUR ---
CALLED DR. RAMIREZ OFFICE TO INFORM DR. BURTON ABOUT PTS BLOOD SUGAR ([phone]) WITH NO ANSWER. WILL TRY AGAIN AND CONTINUE TO MONITOR.
[2016-08-11 12:44] VITALS: BP 127/80
--- NOTE | 2016-08-11 13:24 | NUR ---
PATIENT ACCEPTED TO INPATIENT REHAB, PER TORSTEN MAHAN. CALL WAS PLACED TO DR BURTON IN REGARDS TO DISCHARGE ORDERS. PER NURSE, HE WOULD CALL ME BACK OR PUT THE ORDERS IN FROM THE OFFICE. WILL WAIT.
--- NOTE | 2016-08-11 15:42 | NUR ---
PT WALKED (WITH WALKER AND PHYSICAL THERAPY) 15FT.
[2016-08-11 16:43] VITALS: BP 118/49
--- NOTE | 2016-08-11 18:24 | NUR ---
PT IS CURRENTLY LAYING IN BED ON BACK WITH EYES CLOSED RESTING. BED IS IN LOW POSITION, SIDE RAILS ARE UP X2, AND CALL LIGHT IS IN REACH. NO NEED AT CURRENT TIME. WILL CONTINUE TO MONITOR.
[2016-08-11 19:00] VITALS: BP 117/76
--- NOTE | 2016-08-11 19:30 | NUR ---
RECEIVED REPORT, PT IS SLEEPING, 02-3L, IV-LFA-NS @10, PACEMAKER, ANGEL, 2 PERSON ASSIST, BED IS LOW, SRX2,BOX ALARM ON, CALL LIGHT IN REACH, WILL CONTINUE PLAN OF CARE
--- NOTE | 2016-08-11 20:46 | NUR ---
HELD HUMULIN AND LANTUS- BLOODSUGAR-136, ALSO HELD KLONOPIN, SCHDULE BID 0900 AND 2100, 1ST DOSE WAS GIVE AROUND 1300, PT IS STILL SLEEPING, WILL CONTINUE TO MONITOR
[2016-08-12 00:08] VITALS: BP 119/47
--- NOTE | 2016-08-12 02:26 | NUR ---
PT RESTING WELL WITHOUT C/O OR DISTRESS NOTED. NO NEEDS VOICED. CALL LIGHTS WITHIN REACH. WILL CONT TO MONITOR.
--- NOTE | 2016-08-12 02:57 | NUR ---
ASSESSMENT COMPLETE, SEE FLOWSHEET, PT SLEEPING, BOX ALARM ON, BED IS LOW, SRX2,WILL CONTINUE TO MONITOR
[2016-08-12 03:56] LABS: BASOPHILS 0.2 % (0-2); HEMATOCRIT 26.3 % (42.0-54.0); HEMOGLOBIN 8.5 g/dL (13.5-17.5); IMMATURE GRANULOCYTES 5.2 % (0-5); LYMPHOCYTES 5.1 % (15-50); MCH 22.2 pg (26.0-34.0); MCHC 32.3 g/dL (31.0-37.0); MCV 68.7 fL (80.0-100.0); MEAN PLATELET VOLUME 9.8 fL (7.4-10.4); MONOCYTES 4.9 % (2-11); NEUTROPHILS 83.6 % (40-80); PLATELET COUNT 570 10x3/uL (130-400); RBC 3.83 10x6/uL (4.20-6.10); RDW 23.2 % (11.5-14.5); WBC 19.5 10x3/uL (4.8-10.8)
[2016-08-12 04:00] VITALS: BP 116/43
[2016-08-12 04:19] LABS: ANION GAP 13.8 mmol/L (8-16); CALCIUM 7.4 mg/dL (8.5-10.1); CARBON DIOXIDE 22.1 mmol/L (21.0-32.0); CREATININE - SERUM 1.8 mg/dL (0.6-1.3); MAGNESIUM - SERUM 2.1 mg/dL (1.8-2.4); PHOSPHOROUS 3.1 mg/dL (2.5-4.9); POTASSIUM - SERUM 4.9 mmol/L (3.5-5.1)
--- NOTE | 2016-08-12 07:05 | NUR ---
RECEIVED REPORT. ASSUMED CARE OF PATIENT. ALERT/ORIENTED. TREMORS NOTED TO AFFECT SPEECH THIS AM. FAMILY AT BEDSIDE. CALL LIGHT WITHIN REACH. DENIES NEEDS AT THIS TIME. NO DISTRESS.
[2016-08-12 08:59] VITALS: BP 125/83
--- NOTE | 2016-08-12 11:05 | NUR ---
ANGEL CATHETER REMOVED ORDERED. PATIENT UNSTRUCTED HE WILL NEED TO URINATE WITHIN 6 HOURS AND TO CALL PRIOR TO URINATING SO A URINE SPECIMEN CAN BE OBTAINED. PATIENT VERBALIZED UNDERSTANDING OF ALL INSTRUCTIONS PROVIDED AT THIS TIME. CALL LIGHT WITHIN REACH. NO DISTRESS.
[2016-08-12 12:40] VITALS: BP 117/46
[2016-08-12 13:46] LABS: APPEARANCE CLEAR (CLEAR); BILIRUBIN NEGATIVE (NEGATIVE); COLOR YELLOW (YELLOW); GLUCOSE 50 mg/dL (NEGATIVE); KETONE NEGATIVE (NEGATIVE); LEUKOCYTE ESTERASE 1+ (NEGATIVE); NITRITE NEGATIVE (NEGATIVE); PROTEIN NEGATIVE (NEGATIVE); UROBILINOGEN NORMAL (NORMAL)
[2016-08-12 13:49] LABS: BACTERIA MODERATE /hpf (NONE SEEN); EPITHELIAL CELLS 0-5 /hpf (0-5)
[2016-08-12 13:50] LABS: GRANULAR CAST OCC /lpf (NONE SEEN); MUCUS <1+ /lpf (NONE SEEN)
[2016-08-12 16:24] VITALS: BP 105/51
--- NOTE | 2016-08-12 16:40 | NUR ---
FSBS 123. NO INSULIN ADMINISTERED PER SLIDING SCALE. PATIENT ALSO REFUSING PM MEAL AT THIS TIME. ALTERNATIVES OFFERED AND PATIENT CONTINUED TO REFUSE.
--- NOTE | 2016-08-12 19:05 | NUR ---
ALERT/AWAKE WATCHING TV. DENIES PAIN OR ANY NEEDS. ON 02 AT 3L/NC, RR 18 EVEN U/L. EMPTIED URINAL. CALL LIGHT AND BEDSIDE TABLE WITH PERSONAL ITEMS IN REACH.
--- NOTE | 2016-08-12 19:05 | NUR ---
ALERT/AWAKE WATCHING TV. DENIES ANY NEEDS. STATED STARTING TO FEEL HIS RHEUMATOID PAIN IN SHOULDER AND HANDS. REQUESTED PAIN MEDICATION WITH BEDTIME MEDS. IV L WRIST INTACT WITH NS INFUSING AT 75 ML/HR. AIR AND WATER FILLER SHOWS 92 SR. HAS CALL LIGHT IN HIS HAND.
[2016-08-12 20:00] VITALS: BP 131/58
--- NOTE | 2016-08-12 21:00 | NUR ---
ADMIN SCHED MEDS AND INSULINS FOR BS 226. REQUESTED LIGHTS OFF TO SLEEP.
[2016-08-13] VITALS: BP 104/57
--- NOTE | 2016-08-13 02:40 | NUR ---
RESTING WITH EYES CLOSED. RR 18 EVEN U/L. NO S/S OF DISCOMFORT. EMPTIED URINAL. PLACED CALL LIGHT IN REACH.
[2016-08-13 04:00] VITALS: BP 121/56
--- NOTE | 2016-08-13 04:52 | NUR ---
AWAKE, REQUESTED MORE ICE WATER. EMPTIED URINAL.
[2016-08-13 05:05] LABS: BASOPHILS 0.2 % (0-2); EOSINOPHILS 2.8 % (0-7); HEMATOCRIT 25.9 % (42.0-54.0); HEMOGLOBIN 8.4 g/dL (13.5-17.5); IMMATURE GRANULOCYTES 8.3 % (0-5); LYMPHOCYTES 6.4 % (15-50); MCH 22.6 pg (26.0-34.0); MCHC 32.4 g/dL (31.0-37.0); MCV 69.8 fL (80.0-100.0); MEAN PLATELET VOLUME 9.5 fL (7.4-10.4); MONOCYTES 5.7 % (2-11); NEUTROPHILS 76.6 % (40-80); PLATELET COUNT 496 10x3/uL (130-400); RBC 3.71 10x6/uL (4.20-6.10); RDW 23.5 % (11.5-14.5); WBC 19.4 10x3/uL (4.8-10.8)
[2016-08-13 05:32] LABS: ALBUMIN 1.6 g/dL (3.4-5.0); ANION GAP 12.1 mmol/L (8-16); BILIRUBIN - TOTAL 0.8 mg/dL (0.2-1.3); CALCIUM 7.5 mg/dL (8.5-10.1); CARBON DIOXIDE 21.4 mmol/L (21.0-32.0); CREATININE - SERUM 1.8 mg/dL (0.6-1.3); POTASSIUM - SERUM 4.5 mmol/L (3.5-5.1); PROTEIN - SERUM 5.3 g/dL (6.4-8.2)
[2016-08-13 08:46] VITALS: BP 116/49
[2016-08-13 12:12] VITALS: BP 101/47
[2016-08-13 16:23] VITALS: BP 79/38
--- NOTE | 2016-08-13 19:32 | NUR ---
RESUMED CARE OF PT, LYING IN BED RESPIRATIONS EVEN AND UNLABORED ON 3LPM VIA NC. LEFT FOREARM INFUSING NS @ KVO. REQUESTS PAIN MEDICATION. CALL LIGHT IN REACH. WILL CONTINUE TO MONITOR. SEE NURSE ASSESSMENT.
[2016-08-13 20:00] VITALS: BP 114/51
--- NOTE | 2016-08-14 00:50 | NUR ---
LYING IN BED WITH EYES CLOSED, CALL LIGHT IN REACH. WILL CONTINUE WITH PLAN OF CARE.
[2016-08-14 04:00] VITALS: BP 89/42
[2016-08-14 05:00] LABS: HEMATOCRIT 27.1 % (42.0-54.0); HEMOGLOBIN 8.6 g/dL (13.5-17.5); MCH 22.3 pg (26.0-34.0); MCHC 31.7 g/dL (31.0-37.0); MCV 70.4 fL (80.0-100.0); MEAN PLATELET VOLUME 9.7 fL (7.4-10.4); PLATELET COUNT 527 10x3/uL (130-400); RBC 3.85 10x6/uL (4.20-6.10); RDW 23.9 % (11.5-14.5); WBC 20.1 10x3/uL (4.8-10.8)
[2016-08-14 05:08] LABS: ANION GAP 11.8 mmol/L (8-16); CALCIUM 7.7 mg/dL (8.5-10.1); CARBON DIOXIDE 22.5 mmol/L (21.0-32.0); CREATININE - SERUM 1.8 mg/dL (0.6-1.3); MAGNESIUM - SERUM 1.9 mg/dL (1.8-2.4); PHOSPHOROUS 3.3 mg/dL (2.5-4.9); POTASSIUM - SERUM 4.3 mmol/L (3.5-5.1)
[2016-08-14 05:49] LABS: LYMPHOCYTES 11 % (15-50); MONOCYTES 2 % (2-11); NEUTROPHILS 83 % (40-80); PLATELET ESTIMATE NORMAL
[2016-08-14 05:50] LABS: PLATELET MORPHOLOGY GIANT PLTS PRESENT
--- NOTE | 2016-08-14 06:10 | NUR ---
NO CHANGES FROM PREVIOUS ASSESSMENT, DR. CAMPOVERDE AT BEDSIDE. CALL LIGHT IN REACH.
[2016-08-14 08:00] VITALS: BP 117/50
--- NOTE | 2016-08-14 10:00 | NUR ---
ALERT AND ORIENTED X4. OOB WITH PHYSICAL THERAPY. AMBULATES WITH WALKER AND STANDBY ASSIST 1000FT IN [place]. DENIES ANY NEEDS. CONTINUE PLAN OF CARE AND SAFETY PRECAUTIONS.
[2016-08-14 12:00] VITALS: BP 96/51
[2016-08-14 16:00] VITALS: BP 112/56
--- NOTE | 2016-08-14 16:25 | NUR ---
Patient Name: MORENO CARRASCO Encounter No: [id number] : 1940 Primary Insurance: MEDICARE A & B Anticipated DC Date: 08-11-2016 Planned Disposition: Inpatient Rehab Facility External Planned Provider: [facility] INPAT[facility] DCP follow-up note: CM SPOKE TO KALLI OF INPATIENT REHAB, THEY PLAN TO ACCEPT PT FOR REHAB WHEN PT IS STABLE FOR DISCHARGE. PT NOTIFIED, IN AGREEMENT WITH DISCHARGE TO INPATIENT REHAB AT [place]. IMPORTANT MESSAGE FROM [employer] PROVIDED AND EXPLAINED. NOTIFY INPATIENT REHAB WHEN DISCHARGE ORDERS ARE RECEIVED. [facility] INPATIENT [facility] TO CONTACT MED 2 NURSE WITH ROOM NUMBER WHEN READY TO ACCEPT PT AND NURSE REPORT. Inder Acuña, CASE MANAGEMENT
--- NOTE | 2016-08-14 18:13 | NUR ---
ALERT AND ORIENTED X4. RESTING IN BED. DENIES ANY NEEDS. CONTINUE PLAN OF CARE AND SAFETY PRECAUTIONS. PREPARE SHIFT CHANGE REPORT.
--- NOTE | 2016-08-14 19:20 | NUR ---
ALERT/AWAKE. DENIES PAIN OR ANY NEEDS. IV IN FA INTACT WITH NS INFUSING AT 10ML/HR. EMPTIED URINAL. HAS CALL LIGHT AND BEDSIDE TABLE WITH PERSONAL ITEMS IN REACH.
[2016-08-14 20:13] VITALS: BP 120/53
[2016-08-14 23:40] VITALS: BP 124/60
[2016-08-15 03:43] VITALS: BP 105/48
[2016-08-15 04:49] LABS: BASOPHILS 0.2 % (0-2); EOSINOPHILS 1.4 % (0-7); HEMATOCRIT 26.5 % (42.0-54.0); HEMOGLOBIN 8.3 g/dL (13.5-17.5); IMMATURE GRANULOCYTES 10.6 % (0-5); LYMPHOCYTES 7.6 % (15-50); MCH 22.5 pg (26.0-34.0); MCHC 31.3 g/dL (31.0-37.0); MCV 71.8 fL (80.0-100.0); MEAN PLATELET VOLUME 9.2 fL (7.4-10.4); MONOCYTES 7.6 % (2-11); NEUTROPHILS 72.6 % (40-80); PLATELET COUNT 433 10x3/uL (130-400); RBC 3.69 10x6/uL (4.20-6.10); RDW 24.5 % (11.5-14.5); WBC 18.1 10x3/uL (4.8-10.8)
[2016-08-15 05:12] LABS: ALBUMIN 1.7 g/dL (3.4-5.0); ANION GAP 13.3 mmol/L (8-16); BILIRUBIN - TOTAL 0.58 mg/dL (0.2-1.3); CALCIUM 7.5 mg/dL (8.5-10.1); CARBON DIOXIDE 22.2 mmol/L (21.0-32.0); CREATININE - SERUM 1.9 mg/dL (0.6-1.3); PHOSPHOROUS 3.6 mg/dL (2.5-4.9); POTASSIUM - SERUM 4.5 mmol/L (3.5-5.1); PROTEIN - SERUM 5.5 g/dL (6.4-8.2)
--- NOTE | 2016-08-15 06:19 | NUR ---
DR BUSTILLO LEAVING ROOM. ADMIN A.M. MEDS. DENIES ANY NEEDS OR DISCOMFORTS.
[2016-08-15 09:23] VITALS: BP 109/45
--- NOTE | 2016-08-15 11:00 | NUR ---
ALERT AND OREINTED X4. RESPIRATORY THERAPY AND PHYSICAL THERAPY IN ROOM TO INITIATE WALKING STUDY FOR OXYGEN REQUIREMENTS PER ORDER. APPROVED FOR INPATIENT REHAB. CASE MANAGEMENT WORKING ON DISCHARGE PLAN TO REHAB. DENIES ANY NEEDS. BED LOCKED AND LOW. CALL LIGHT IN REACH. TWO SIDERAILS UP.
[2016-08-15 12:19] VITALS: BP 120/56
--- NOTE | 2016-08-15 14:40 | NUR ---
SLEEPING IN BED. RESPIRATIONS EVEN AND REGULAR. EASILY AROUSES TO STIMULI. DENIES ANY NEEDS. CONTINUE PLAN OF CARE AND SAFETY PRECAUTIONS.
[2016-08-15] MEDS ORDERED: PULMICORT0.5 MG/21 UPD (14:53)
[2016-08-15] MEDS ORDERED: BROVANA15 MCG/2 M INH (14:54)
[2016-08-15] MEDS ORDERED: KLONOPIN0.5 MG PO (14:54)
[2016-08-15] MEDS ORDERED: FLOMAX0.4 MG PO (14:54)
[2016-08-15] MEDS ORDERED: NYSTATIN ORAL SU5 ML PO (14:55)
[2016-08-15] MEDS ORDERED: IPRAT-ALBUT 0.5-3 ML UPD (14:55)
[2016-08-15 15:32] VITALS: BP 108/47
--- NOTE | 2016-08-15 16:46 | NUR ---
ALERT AND ORIENTED X4. RESTING IN BED. DC LT FA IV TIP INTACT. WAITING FOR REHAB ROOM NUMBER PLACEMENT. NO CHANGE. CONTINUE PLAN OF CARE AND SAFETY PRECAUTIONS.
--- NOTE | 2016-08-15 17:29 | NUR ---
ALERT AND ORIENTED X4. REPORT CALLED TO DELFINO CHADWICK IN REHAB. GOING TO ROOM #1119W. TRANSPORT TO REHAB VIA WHEELCHAIR . REMAIN FREE FROM INJURY.
== END 2016-08-15 17:41 | DRG 291 ==
LOC: D.CVICU 18:10 → D.M2 18:34
PROVIDERS: Family Medicine; Internal Medicine Hematology & Oncology; Internal Medicine Nephrology; Internal Medicine Pulmonary Disease; ADMIT Family Medicine
DX: I13.0 Hypertensive heart and chronic kidney disease with heart failure and stage 1 through stage 4 chronic kidney disease, or unspecified chronic kidney disease (principal); J96.01 Acute respiratory failure with hypoxia; J18.9 Pneumonia, unspecified organism; I50.33 Acute on chronic diastolic (congestive) heart failure; J44.0 Chronic obstructive pulmonary disease with (acute) lower respiratory infection; N18.4 Chronic kidney disease, stage 4 (severe); D62 Acute posthemorrhagic anemia; N17.9 Acute kidney failure, unspecified; K22.70 Barrett's esophagus without dysplasia; I48.91 Unspecified atrial fibrillation; N40.0 Benign prostatic hyperplasia without lower urinary tract symptoms; I25.10 Atherosclerotic heart disease of native coronary artery without angina pectoris; Z66 Do not resuscitate; E11.22 Type 2 diabetes mellitus with diabetic chronic kidney disease; D50.9 Iron deficiency anemia, unspecified; K57.90 Diverticulosis of intestine, part unspecified, without perforation or abscess without bleeding; N32.9 Bladder disorder, unspecified; R25.1 Tremor, unspecified; Z95.5 Presence of coronary angioplasty implant and graft; Z95.0 Presence of cardiac pacemaker; Z86.73 Personal history of transient ischemic attack (TIA), and cerebral infarction without residual deficits; Z72.0 Tobacco use

== ENCOUNTER 2016-08-15 17:48 | Inpatient (IN) | payer MEDICARE, BC ==
[~2016-08-15] VITALS: Ht 167.6 cm; Wt 66.9 kg
[~2016-08-15 17:48] MED LIST changes: +BROVANA15 MCG/2 M INH; +GLUCOTROL XL 1010 MG PO; +IPRAT-ALBUT 0.5-3 ML UPD; +KLONOPIN0.5 MG PO; +NYSTATIN ORAL SU5 ML PO; +PULMICORT0.5 MG/21 UPD
--- NOTE | 2016-08-15 18:04 | NUR ---
PT ARRIVED TO UNIT VIA WHEELCHAIR ACCOMPANIED BY HOSPITAL STAFF. PT IS A&O AND DENIES NEEDS AT THIS TIME.
--- NOTE | 2016-08-15 19:47 | NUR ---
PT RECEIVED IN BED WITH EYES CLOSED AND CHEST RISING. NO COMPLAINTS OR CONCERNS MADE KNOWN. CALL LIGHT IN REACH.
--- NOTE | 2016-08-15 23:30 | NUR ---
PT IN BED WITH EYES CLOSED AND CHEST RISING. NO CONCERNS MADE KNOWN. CALL LIGHT IN REACH.
[2016-08-16 01:00] VITALS: BP 111/52
--- NOTE | 2016-08-16 03:01 | NUR ---
PT IN BED WITH EYES CLOSED AND CHEST RISING. NO CONCERNS NOTED AT THIS TIME. CALL LIGHT IN REACH.
[2016-08-16 05:21] LABS: BASOPHILS 0.2 % (0-2); EOSINOPHILS 1.2 % (0-7); HEMATOCRIT 28.2 % (42.0-54.0); HEMOGLOBIN 8.5 g/dL (13.5-17.5); IMMATURE GRANULOCYTES 9.3 % (0-5); LYMPHOCYTES 8.7 % (15-50); MCH 22.3 pg (26.0-34.0); MCHC 30.1 g/dL (31.0-37.0); MEAN PLATELET VOLUME 9.6 fL (7.4-10.4); MONOCYTES 7.1 % (2-11); NEUTROPHILS 73.5 % (40-80); PLATELET COUNT 402 10x3/uL (130-400); RBC 3.81 10x6/uL (4.20-6.10); RDW 25.2 % (11.5-14.5); WBC 15.1 10x3/uL (4.8-10.8)
[2016-08-16 06:44] LABS: ANION GAP 14.2 mmol/L (8-16); CALCIUM 7.7 mg/dL (8.5-10.1); CARBON DIOXIDE 21.8 mmol/L (21.0-32.0); CREATININE - SERUM 1.8 mg/dL (0.6-1.3)
[2016-08-16 07:53] VITALS: BP 108/53
--- NOTE | 2016-08-16 08:00 | NUR ---
UP TO SIDE OF BED FOR BREAKFAST. AT BEDSIDE.CL IN REACH ALARM ON.
--- NOTE | 2016-08-16 11:22 | NUR ---
PATIENT ADMITTED TO REHAB FROM ACUTE FLOOR. PATIENT HOPES TO RETURN HOME WITH SPOUSE BUT IF UNABLE TO HE WOULD LIKE A REFERRAL TO [facility]. WILL CONTINUE TO FOLLOW WITH PATIENT AND WILL ASSIT WITH DISCHARGE NEEDS.
--- NOTE | 2016-08-16 12:00 | NUR ---
SITTING UP EATING BREAKFAST.CL IN REACH.
[2016-08-16 14:45] VITALS: Ht 167.6 cm; Wt 66.9 kg
--- NOTE | 2016-08-16 16:00 | NUR ---
SLEEPING.CL IN REACH.RESP EASY.
[2016-08-16 17:38] VITALS: BP 124/47
--- NOTE | 2016-08-16 20:00 | NUR ---
PT. IN BED LYING ON HIS LEFT SIDE AND IS RECEIVING A BREATHING TX. ASSESSMENT COMPLETED. NO VOICED NEEDS AT THIS TIME AND HIS CALL LIGHT AND URINAL ARE WITHIN REACH.
[2016-08-16 21:46] VITALS: BP 111/53
--- NOTE | 2016-08-16 23:13 | NUR ---
PT. IN BED LYING ON HIS LEFT SIDE WITH EYES CLOSED AND RESP. DEEP AND EVEN. CALL LIGHT WITHIN REACH.
--- NOTE | 2016-08-17 03:12 | NUR ---
PT. IN BED WITH HOB ELEVATED FOR COMFORT WITH EYES CLOSED AND RESP. EVEN. CALL LIGHT REMAINS WITHIN REACH.
[2016-08-17 05:09] LABS: BASOPHILS 0.1 % (0-2); EOSINOPHILS 1.1 % (0-7); HEMATOCRIT 27.4 % (42.0-54.0); HEMOGLOBIN 8.1 g/dL (13.5-17.5); IMMATURE GRANULOCYTES 5.7 % (0-5); LYMPHOCYTES 9.9 % (15-50); MCH 22.6 pg (26.0-34.0); MCHC 29.6 g/dL (31.0-37.0); MEAN PLATELET VOLUME 9.3 fL (7.4-10.4); MONOCYTES 7.3 % (2-11); NEUTROPHILS 75.9 % (40-80); RBC 3.58 10x6/uL (4.20-6.10); RDW 25.7 % (11.5-14.5); WBC 13.6 10x3/uL (4.8-10.8)
[2016-08-17 05:11] LABS: MCV 76.5 fL (80.0-100.0); PLATELET COUNT 297 10x3/uL (130-400)
[2016-08-17 05:34] LABS: CALCIUM 7.5 mg/dL (8.5-10.1); CARBON DIOXIDE 23.6 mmol/L (21.0-32.0); CREATININE - SERUM 1.9 mg/dL (0.6-1.3); PHOSPHOROUS 3.4 mg/dL (2.5-4.9); POTASSIUM - SERUM 4.6 mmol/L (3.5-5.1)
--- NOTE | 2016-08-17 05:58 | NUR ---
FSBS THIS MORNING 69. OFFERED ANGIE CRACKERS AND 2% MILK PT. DOESN'T LIKE JUICES. PT. ATE 2 PACKAGES OF ANGIE CRACKERS AND 2 CARTON OF MILK.
[2016-08-17 08:00] VITALS: BP 115/51
--- NOTE | 2016-08-17 08:00 | NUR ---
SHIFT ASSMT COMPLETED.DENIES NEEDS.STILL CONCERNED WITH TREMORS.MEAL TRAY GIVEN.CL IN REACH.
[2016-08-17 11:52] VITALS: BP 121/52
--- NOTE | 2016-08-17 12:00 | NUR ---
LUNCH GIVEN.ASSITED UPOVIDED. VISITING.
--- NOTE | 2016-08-17 15:35 | NUR ---
WOUND CARE: NOTED PURPLE BRUISING ON BILATERAL HEELS. DISCOVERED AFTER PT C/O HEELS HURTING DURING THERAPY. RECOMMEND PROTECTING WITH SKIN PREP AND COVERING WITH MEPILEX 2X2S. ALSO NEED TO KEEP HEELS BRIDGED WHILE IN BED. ORDERED AN AIR OVERLAY MATTRESS. WOUND CARE WILL FOLLOW.
--- NOTE | 2016-08-17 16:00 | NUR ---
up in chair.cl in reach.
[2016-08-17 18:00] VITALS: BP 117/53
--- NOTE | 2016-08-17 20:00 | NUR ---
PT IN BED WITH HOB UP FOR COMFORT. EYES CLOSED. CHEST RISING AND FALLING. DAILY WEIGHT. VITALS Q6H. NO O2. NO IV. FSBS ACHS. LEFT PACEMAKER. URINAL. ALERT & ORIENTED X3. BED ALARM ON. BED IN LOWEST POSITION AND CALL LIGHT WITHIN REACH.
--- NOTE | 2016-08-17 23:05 | NUR ---
ASSISTED PATIENT'S PRIMARY NURSE TO REPOSITION PATIENT HIGHER UP IN BED.
[2016-08-17 23:59] VITALS: BP 106/42
--- NOTE | 2016-08-18 | NUR ---
PT IN BED WITH HOB UP FOR COMFORT. EYES CLOSED. CHEST RISING AND FALLING. BED IN LOWEST POSITION AND CALL LIGHT WITHIN REACH.
--- NOTE | 2016-08-18 01:01 | NUR ---
HEARD PT'S BED ALARM GOING OFF. WALKED INTO PT'S ROOM AND HE WAS ABOUT TO STAND UP OUT OF BED. I ASKED PT WHAT HE WAS DOING. HE STATED, "I NEED TO PEE I CAN'T FIND MY URINAL." I STATED, "YOUR URINAL IS ON YOUR BEDSIDE TABLE." I HANDED HIM THE URINAL AND HE STOOD UP. PT BEGAN TO TREMOR I TTOLD HIM TO SIT BACK ON THE BED AND PT STATED"THAT HE IS OK." AND AT THAT TIME PT STARTED BECOMING WEIGHT. I LOWERED HIM SAFELY TO THE GROUND AND CALLED FOR MERISSA RN TO COME HELP. MERISSA RN HELPED ME GET PT BACK INTO BED AND SETTLED. PT STATED< " IWALKED A 100FT EARLIER TODAY TO THE BATHROOM WHY DID THAT HAPPEN." I CHECKED PT'S BS AND IT WAS 215. PT'S VIATALS WERE BP: 104/45 P: 71 R:22 02: 95% T: 98.9. PT WAS ALERT & ORIENTED X3. PT STATED, "I AM NOT HURT OR HURTING ANYWHERE." I LOOKED AT PT'S BODY AND CHECKED TO MAKE SURE THERE WAS NO BRUISES, RUELAS, OR BUMPS. WILL CONTINUE TO MONITOR.
--- NOTE | 2016-08-18 02:06 | NUR ---
PT PRESSED CALL LIGHT. WENT INTO PT'S ROOM AND HE HAD THREW HALF HIS BODY OFF OF THE SIDE RAILS. I STATED, "MR. CARRASCO DON'T DO THAT. I'LL HELP YOU." PT AT THAT TIME PROCEEDED TO STAND I WAS TRYING TO GET THE RAIL DOWN FOR HIM TO SIT ON THE BED AND USE HIS URINAL. BUT PT STARTED GETTING HIS TREMORS AND I STATED FOR HIM TO SIT ON THE BED. AND HE SAT ON THE VERY EDGE OF THE BED AND STARTED SLIDING OFF. I HELPED LOWER HIM TO THE FLOOR. I CALLED FOR MERISSA SARMIENTO TO HELP ME PUT HIM BACK IN BED. MERISSA SARMIENTO HELPED ME PUT HIM BACK IN BED AND TOLD HIM HE WILL HAVE TO USE HIS URINAL IN BED BECAUSE THIS IS THE SECOND TIME THIS HAS HAPPENED. PT STATES THAT HE IS OK. WILL CONTINUE TO MONITOR.
[2016-08-18 05:33] LABS: BASOPHILS 0.1 % (0-2); EOSINOPHILS 0.6 % (0-7); HEMATOCRIT 26.6 % (42.0-54.0); HEMOGLOBIN 7.9 g/dL (13.5-17.5); LYMPHOCYTES 7.6 % (15-50); MCH 22.8 pg (26.0-34.0); MCHC 29.7 g/dL (31.0-37.0); MCV 76.9 fL (80.0-100.0); MEAN PLATELET VOLUME 9.6 fL (7.4-10.4); MONOCYTES 8.5 % (2-11); NEUTROPHILS 79.2 % (40-80); PLATELET COUNT 295 10x3/uL (130-400); RBC 3.46 10x6/uL (4.20-6.10); RDW 26.7 % (11.5-14.5); WBC 14.4 10x3/uL (4.8-10.8)
[2016-08-18 05:38] LABS: ANION GAP 12.6 mmol/L (8-16); CALCIUM 7.5 mg/dL (8.5-10.1); CARBON DIOXIDE 22.2 mmol/L (21.0-32.0); CREATININE - SERUM 2.2 mg/dL (0.6-1.3); POTASSIUM - SERUM 4.8 mmol/L (3.5-5.1)
[2016-08-18 06:00] VITALS: BP 115/48
--- NOTE | 2016-08-18 06:16 | NUR ---
DID NOT DO PT'S DAILY WEIGHT DUE TO PT HAVING FALL'S LAST NIGHT.
--- NOTE | 2016-08-18 07:30 | NUR ---
DR.MCCRARY ORTIZ.SITTING UP IN CHAIR FOR MEAL.ALERTED TO THAT PT WAS EASED TO FLOOR TWICE IN NIGHT DUE TO UNCONTROLABLE SHAKING AND TREMORS.WILL MAKE MED CHANGES TODAY.
--- NOTE | 2016-08-18 08:00 | NUR ---
PT SPOKE WITH THIS AM,NOTIFIED HER TO LET HER KNOW OF EVENTS THAT TOOK PLACE THROUGH NIGHT;SHE STATED SHE SPOKE WITH AND HE HAD TOLD HER ABOUT IT.SHE STATED SHE WILL BE UP TO SEE HIM AT NOON.
[2016-08-18 08:38] VITALS: BP 112/46
[2016-08-18 12:00] VITALS: BP 88/56
--- NOTE | 2016-08-18 12:00 | NUR ---
SITTING UP IN WC EATING LUNCH.CL IN REACH. AT BEDSIDE.
--- NOTE | 2016-08-18 16:00 | NUR ---
RESTING QUIETLY IN BED.CL IN REACH.ALARM ON ,BED INFLATED.
[2016-08-18 17:43] VITALS: BP 99/46
--- NOTE | 2016-08-18 19:48 | NUR ---
PT RECEIVED IN BED WITH EYES CLOSED AND CHEST RISING. EASILY AROUSED TO VERBAL STIMULI. NO CONCERNS NOTED AT THIS TIME. CALL LIGHT IN REACH.
--- NOTE | 2016-08-18 22:57 | NUR ---
PT IN BED WITH EYES CLOSED AND CHEST RISING. NO SIGN/SYMPTOMS OF DISTRESS NOTED. RECEIVED HS MEDICATIONS PER MAR WITHOUT DIFFICULTY. CARDIZEM HELD FOR B/P 122/46. FSBS 69 WITH APPLE JUICE GIVEN WITH ORAL MEDICATIONS AND RECHECKED ONE HOUR LATER WITH 67 READING AND VANILLA PUDDING GIVEN. WILL CONTINUE TO MONITOR. CALL LIGHT IN REACH.
[2016-08-18 23:34] VITALS: BP 122/46
--- NOTE | 2016-08-19 03:07 | NUR ---
PT IN BED WITH EYES CLOSED AND CHEST RISING. NO SIGN/SYMPTOMS OF DISTRESS NOTED. CALL LIGHT IN REACH.
[2016-08-19 06:16] VITALS: BP 114/49
--- NOTE | 2016-08-19 06:21 | NUR ---
PT IN BED WITH EYES CLOSED AND CHEST RISING. EASILY AROUSED TO VERBAL STIMULI. NO CONCERNS NOTED AT THIS TIME. CALL LIGHT IN REACH.
--- NOTE | 2016-08-19 08:12 | NUR ---
PATIENT SITTIN UP IN WHEELCHAIR TO EAT BREAKFAST. IN ROOM WITH PATIENT. PATIENT IS ALERT/ORIENT X4. CALL LIGHT WITHIN REACH.
[2016-08-19 08:49] LABS: BASOPHILS 0.1 % (0-2); EOSINOPHILS 1.1 % (0-7); HEMATOCRIT 31.8 % (42.0-54.0); HEMOGLOBIN 9.4 g/dL (13.5-17.5); LYMPHOCYTES 8.6 % (15-50); MCH 23.5 pg (26.0-34.0); MCHC 29.6 g/dL (31.0-37.0); MEAN PLATELET VOLUME 9.7 fL (7.4-10.4); MONOCYTES 6.5 % (2-11); NEUTROPHILS 81.7 % (40-80); PLATELET COUNT 300 10x3/uL (130-400); RDW 28.3 % (11.5-14.5); WBC 12.4 10x3/uL (4.8-10.8)
[2016-08-19 08:54] LABS: MCV 79.5 fL (80.0-100.0)
[2016-08-19 09:05] LABS: CARBON DIOXIDE 22.7 mmol/L (21.0-32.0); PHOSPHOROUS 3.7 mg/dL (2.5-4.9); POTASSIUM - SERUM 4.7 mmol/L (3.5-5.1)
--- NOTE | 2016-08-19 10:13 | NUR ---
PATIENT STANDING UP AT BEDSIDE TO USE URINAL.
--- NOTE | 2016-08-19 11:30 | NUR ---
GLUCOSE LEVEL 254. TEN UNITS OF SLIDING SCALE INSULIN GIVEN
[2016-08-19 12:00] VITALS: BP 98/48
--- NOTE | 2016-08-19 12:43 | NUR ---
PT UP WITH THERAPY. TOLERATING WELL.
--- NOTE | 2016-08-19 14:07 | NUR ---
RADILOGY HERE TO DO XR OF ABDOMEN TWO VIEW
--- NOTE | 2016-08-19 17:00 | NUR ---
GLUCOSE LEVEL 301. TWELEVE UNITS OF SLIDING SCALE INSULIN GIVEN
[2016-08-19 18:24] VITALS: BP 102/42
--- NOTE | 2016-08-19 21:02 | NUR ---
PT RECEIVED UP IN WHEELCHAIR AT BEDSIDE. NO COMPLAINTS NOTED AT THIS TIME. REQUEST ASSISTANCE TO GET INTO BED AND WAS GIVEN. NO OTHER NEEDS OR CONCERNS NOTED AT THIS TIME. CALL LIGHT IN REACH.
--- NOTE | 2016-08-19 23:30 | NUR ---
PT IN BED WITH EYES CLOSED AND CHEST RISING. NO SIGN/SYMPTOMS OF DISTRESS NOTED. CALL LIGHT IN REACH.
[2016-08-19 23:43] VITALS: BP 122/53
--- NOTE | 2016-08-20 03:41 | NUR ---
PT IN BED WITH EYES CLOSED AND CHEST RISING. NO CONCERNS NOTED AT THIS TIME. CALL LIGHT IN REACH.
[2016-08-20 05:42] VITALS: BP 141/51
--- NOTE | 2016-08-20 05:53 | RHP ---
PATIENT: MORENO CARRASCO MEDICAL RECORD: [id number] ACCOUNT: [id number] LOCATION:[facility]1117 : 42 ADMISSION DATE: 08/15/16 REHABILITATION HISTORY AND PHYSICAL EXAMINATION POST ADMISSION PHYSICIAN EXAMINATION Post-Admission Physical Examination and History and Physical DATE OF ADMISSION TO THE REHAB: 08/15/2016 ADMITTING DIAGNOSIS: Congestive heart failure myopathy. HISTORY OF PRESENT ILLNESS: The patient is a 75-year-old gentleman who is admitted to rehab with CHF myopathy on August 06. He was admitted from the rehab where he was receiving therapy after fractured several ribs. He had progressive shortness of breath, became hypoxic. Chest x-ray showed cardiac silhouette was mildly enlarged. He had moderate central and peripheral pulmonary edema. He was admitted to the ICU, was initially placed on BiPAP, but with diuresis, steroids, IV antibiotics and nebulizer, he improved. He spent 4 days in the ICU, was discharged out to the floor on telemetry. Prior to his fall, he was independent with ADLs and mobility, lives with his and plans to return there on discharge. Currently, he is moderate to max assist with ADLs and mobility. He is on O2 at 3-4 liters, titrate to keep sat above 92%. He has a Mtz. He will need bladder training prior to its removal. He has got a severe tremor that worsens any activity. He has decreased core strength with difficulty going from a lying to sitting position, he can ambulate a few feet, but has tremors and he has poor balance and weakness in his legs. He will definitely need inpatient rehab to get back to his prior level of functioning or better to return home with his . COMORBIDITIES: Include bilateral pleural effusions, tremors, COPD, coronary artery disease, atrial fib, gastroesophageal reflux disease, microcytic anemia, leukocytosis, hypoxia, dyspnea, generalized weakness, fatigue, anemia, recent rib fractures, noninsulin-diabetes mellitus, elevated D-dimer, BPH and anemia. PAST MEDICAL HISTORY: Significant for hypoglycemia, microcytic anemia, abdominal pain, GI bleeding, enlarged prostate, bladder mass, hypertension and diabetes. He has got a short segment of esophagitis, TIA, AFib, he has got a pacemaker now, and coronary artery disease. PAST SURGICAL HISTORY: Includes cholecystectomy, pacemaker placement, angioplasty and recent heart catheterization. ALLERGIES: No known drug allergies. CURRENT MEDICATIONS: Include Megace 40 mg daily. He is on an intermittent resistant sliding scale q.a.c. and at bedtime. He is on folic acid. He is on Procrit 4000 units daily, diltiazem 30 mg t.i.d., glipizide 5 mg b.i.d. with meals, Neurontin 100 mg t.i.d., digoxin 0.125 mg every other day, amiodarone 200 mg daily, Flomax 0.4 mg daily, Januvia 100 mg daily, DuoNeb updrafts, Proscar 5 mg daily, Plavix 75 mg daily, atorvastatin 20 mg daily, hydrocodone 5/325 as needed for pain, Klonopin 0.25 mg b.i.d., Pulmicort 0.5 mg b.i.d., Brovana 15 mcg b.i.d. and polyethylene glycol 17 g in 8 ounces of water daily. HABITS: No current alcohol or tobacco use. HISTORY AND PHYSICAL [id number] MORENO CARRASCO FAMILY HISTORY: Noncontributory. SOCIAL HISTORY: The patient hopes to return back home and live with his . REVIEW OF SYSTEMS: GENERAL: Does complain of weakness. HEENT: Denies cold, cough, or congestion. CARDIOVASCULAR: Denies chest pain. PHYSICAL EXAMINATION: VITAL SIGNS: Stable, afebrile. GENERAL: Elderly gentleman in no acute distress, alert upon exam. HEENT: Normocephalic and atraumatic. Mucosa moist. NECK: Supple. No lymphadenopathy. LUNGS: Clear at this time in upper mena. HEART: Irregular rate and rhythm. ABDOMEN: Benign. EXTREMITIES: No clubbing, cyanosis, or edema. NEUROLOGIC: Intact. LABORATORY DATA: White count is 15.1, H&H of 8.5 and 28.2, and his platelet count was noted to be 402. Sodium is 138, potassium 5.0, BUN and creatinine of 24 and 1.8, and blood sugar is noted to be 158. 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 The patient has potential to make improvement. We instituted the following multidisciplinary therapies including, but not limited to physical, occupational, respiratory, speech, nutritional services, prosthetics and orthotics. Given his complex condition and risk for more complications, rehabilitation services cannot be provided at a low level of care such as a jail facility. PLAN: 1. Admit to [facility] rehab for intensive inpatient therapy to include the following disciplines: A. Physical therapy to improve gait, all transfer skills and bed mobility to a modified independent level. B. Occupational therapy to improve activities of daily living to a modified independent level. C. Case management to assist with discharge planning and placement options. D. Nutrition to assist with nutritional needs. E. Rehabilitation nursing to assist in monitoring the patient's underlying medical conditions and to assist with any type of bowel or bladder management. 2. The patient's current medication and medical care will be continued. 3. The patient will be placed on standard fall precautions. 4. The patient's estimated length of stay is approximately 7-10 days. 5. We will go ahead and watch his potassium and his electrolytes closely, hopefully get him up and going again, his will be here most of the time and we will keep her updated to his care. TRANSINT:[id number] Voice Confirmation ID: [id number] DOCUMENT ID: [id number] MATT notes whether there has been none or any medical/functional HISTORY AND PHYSICAL [id number] MORENO CARRASCO change since admission: - MATT attests patient continues to be appropriate for IRF: - ANDREY ARGUETA MD at 0553 CC: [id number] DICTATION DATE: 08/16/16 0900 CONTRACT ADMINISTRATIVE ASSISTANT: 08/16/16 1051 ADM IN [facility] [address] [id number]
--- NOTE | 2016-08-20 06:56 | NUR ---
PT IN BED WITH EYE OPEN. FSBS AT 0525 51 WITH ANGIE CRACKERS AND ORANGE JUICE GIVEN RECHECKED AT 0625 WITH FSBS OF 56. FULL CUP OF ORANGE JUICE CONSUMED AND FSBS RECHECKED AT 0650 WITH FSBS 47. ORDERS FOR STAT GLUCOSE FROM LAB ORDERED. REPORTED TO ON COMING STAFF. NO CLAMINESS NOTED. PT ORIENTED.
--- NOTE | 2016-08-20 07:28 | NUR ---
LAB CALLED WITH GLUCOSE RESULTS. BLOOD SUGAR 57. PATIENT SITTING UP IN CHAIR AT BEDSIDE. GIVEN TWO CRAKERS WITH PEANUT BUTTER, ORANGE JUICE. IN ROOM WITH PATIENT.
--- NOTE | 2016-08-20 07:45 | NUR ---
PATIENT ALERT/ORIENT X4 WITH SOME FORGETFULLNESS. SITTING UP IN WHEELCHAIR TO EAT BREAKFAST. CALL LIGHT WITHIN REACH. CHAIR ALARM ON.
--- NOTE | 2016-08-20 08:17 | NUR ---
GLUCOSE LEVEL 126 AFTER EATTING BREAKFAST.
--- NOTE | 2016-08-20 10:08 | NUR ---
LINES ON BED CHANGED AND PATIENT HELPED BACK TO BED. PATIENTS GAIT IS VERY SHAKEY. STAND BY ASST FROM WHEELCHAIR INTO BED. BED ALARM ON
--- NOTE | 2016-08-20 11:38 | NUR ---
GLUCOSE LEVEL 284. TEN UNITS OF SLIDING SCALE INSULIN GIVEN
[2016-08-20 12:07] VITALS: BP 93/38
--- NOTE | 2016-08-20 14:26 | NUR ---
PAITNET: CHF MYOPATHY. NO RESPITORY DESTRESS NOTED. PULSE OX 96 RA.
--- NOTE | 2016-08-20 15:25 | NUR ---
DRESSING CHANGED TO BILATERAL HEELS. HEELS RED. NO OPEN AREA. PROTECTIVE BARRIER WIPES APPLIED. MEPILEX DRESSING APPLIED
--- NOTE | 2016-08-20 16:36 | NUR ---
GLUCOSE LEVEL 136. NO SLIDING SCALE INSULIN GIVEN.
[2016-08-20 18:09] VITALS: BP 131/59
--- NOTE | 2016-08-20 19:46 | NUR ---
PT RECEIVED IN BED WITH EYES CLOSED AND CHEST RISING. EASILY AROUSED TO VERBAL STIMULI. NO CONCERNS MADE KNOWN AT THIS TIME. CALL LIGHT IN REACH.
[2016-08-21 00:08] VITALS: BP 127/46
--- NOTE | 2016-08-21 00:19 | NUR ---
PT IN BED WITH EYES CLOSED AND CHEST RISING. NO SIGN/SYMPTOMS OF DISTRESS NOTED. CALL LIGHT IN REACH.
--- NOTE | 2016-08-21 03:05 | NUR ---
PT IN BED WITH EYES CLOSED AND CHEST RISING. NO CONCERN NOTED AT THIS TIME. CALL LIGHT IN REACH.
[2016-08-21 05:51] VITALS: BP 101/43
[2016-08-21 06:49] LABS: BASOPHILS 0.1 % (0-2); EOSINOPHILS 1.1 % (0-7); HEMATOCRIT 29.3 % (42.0-54.0); HEMOGLOBIN 8.7 g/dL (13.5-17.5); IMMATURE GRANULOCYTES 0.6 % (0-5); MCH 23.6 pg (26.0-34.0); MCHC 29.7 g/dL (31.0-37.0); MCV 79.6 fL (80.0-100.0); MONOCYTES 6.9 % (2-11); NEUTROPHILS 82.3 % (40-80); PLATELET COUNT 283 10x3/uL (130-400); RBC 3.68 10x6/uL (4.20-6.10); WBC 11.3 10x3/uL (4.8-10.8)
[2016-08-21 07:04] LABS: ANION GAP 11.5 mmol/L (8-16); CALCIUM 7.8 mg/dL (8.5-10.1); CARBON DIOXIDE 24.5 mmol/L (21.0-32.0); CREATININE - SERUM 1.5 mg/dL (0.6-1.3)
--- NOTE | 2016-08-21 07:31 | NUR ---
LAB CALLED WITH CRITICAL BLOOD GLUCOSE OF 37. PT SITTING UP IN CHAIR TALKING TO . X2 ORANGE JUICE GIVEN AND PT DRANK EASILY. HE ASKED FOR PAIN MEDICATION FOR LEFT HIP PAIN.
--- NOTE | 2016-08-21 07:51 | NUR ---
SITTING UP IN W/C EATING BREAKFAST. IN ROOM WITH PT. SHE HELPED HIM TO BATHROOM. HE IS ALERT AND ORIENTED. DOES NOT DECREASED LOC AND IS NOT SWEATING. ENCOURAGED PT TO EAT MUCH OF HIS BREAKFAST POSSIBLE.
[2016-08-21 10:43] VITALS: BP 90/37
--- NOTE | 2016-08-21 13:46 | NUR ---
SITTING IN W/C IN ROOM WAITING TO GO TO THERAPY. HAD XRAY OF LEFT HIP DUE TO LEFT HIP PAIN.
[2016-08-21 14:34] LABS: APPEARANCE CLEAR (CLEAR); BACTERIA FEW /hpf (NONE SEEN); BILIRUBIN NEGATIVE (NEGATIVE); COLOR YELLOW (YELLOW); EPITHELIAL CELLS 0-5 /hpf (0-5); GLUCOSE NEGATIVE (NEGATIVE); KETONE NEGATIVE (NEGATIVE); LEUKOCYTE ESTERASE NEGATIVE (NEGATIVE); NITRITE NEGATIVE (NEGATIVE); PROTEIN TRACE mg/dL (NEGATIVE); RED CELLS - URINE 0-5 /hpf (0-5); UROBILINOGEN NORMAL (NORMAL); WHITE CELLS - URINE 0-5 /hpf (0-5)
[2016-08-21 14:35] LABS: HYALINE CAST 0-5 /lpf (NONE SEEN)
[2016-08-21 14:39] LABS: MUCUS <1+ /lpf (NONE SEEN)
--- NOTE | 2016-08-21 16:49 | NUR ---
SITTING ON SIDE OF BED EATING SNACK. FSBS WAS 40. NO INSULIN OR ANIT DIABETIC MEDS GIVEN TODAY.
[2016-08-21 18:08] VITALS: BP 99/56
--- NOTE | 2016-08-21 20:00 | NUR ---
PT IN BED WITH HOB UP FOR COMFORT. EYES CLOSED. CHEST RISING AND FALLING. BED LOWEST POSITION AND CALL LIGHT WITHIN REACH.
--- NOTE | 2016-08-22 | NUR ---
ASSISTED PT TO BATHROOM AND BACK TO BED.
[2016-08-22 00:16] VITALS: BP 127/57
--- NOTE | 2016-08-22 01:45 | NUR ---
PT BED ALARM SOUNDING, PT SITTING ON SIDE OF BED AND STATES HE IS GOING TO THE BATHROOM. PT APPEARS TO IGNORE THE ALARM. PT HAS UNSTEADY GATE, VOIDED WITHOUT DIFFICULTY. ASSISTED PT BACK TO BED. BED ALARM SET.
--- NOTE | 2016-08-22 04:00 | NUR ---
PT IN BED WITH HOB UP FOR COMFORT. EYES CLOSED. RESPIRATIONS EVEN AND UNLABORED. BED IN LOWEST POSITION AND CALL LIGHT WITHIN REACH.
[2016-08-22 05:59] VITALS: BP 108/49
[2016-08-22 06:06] LABS: BASOPHILS 0.1 % (0-2); EOSINOPHILS 1.9 % (0-7); HEMATOCRIT 29.3 % (42.0-54.0); HEMOGLOBIN 8.8 g/dL (13.5-17.5); IMMATURE GRANULOCYTES 1.1 % (0-5); LYMPHOCYTES 14.7 % (15-50); MCV 79.8 fL (80.0-100.0); MEAN PLATELET VOLUME 9.7 fL (7.4-10.4); MONOCYTES 8.7 % (2-11); NEUTROPHILS 73.5 % (40-80); PLATELET COUNT 286 10x3/uL (130-400); RBC 3.67 10x6/uL (4.20-6.10)
[2016-08-22 06:11] LABS: WBC 8.3 10x3/uL (4.8-10.8)
[2016-08-22 06:19] LABS: ANION GAP 13.6 mmol/L (8-16); CALCIUM 7.7 mg/dL (8.5-10.1); CARBON DIOXIDE 23.4 mmol/L (21.0-32.0); CREATININE - SERUM 1.7 mg/dL (0.6-1.3)
--- NOTE | 2016-08-22 08:00 | NUR ---
SHIFT ASSMT COMPLETED.DENIES NEEDS.MEAL SET-UP PROVIDED.
--- NOTE | 2016-08-22 10:19 | NUR ---
NUTRITION MONITORING & EVAL CHART REVIEWED. ADA DIET WITH GOOD INTAKE RECENT MEALS. +BM CHARTED. WILL CONTINUE TO PROVIDE DIET, MONITOR INTAKE. RD FOLLOWING
[2016-08-22 11:58] VITALS: BP 111/51
--- NOTE | 2016-08-22 12:00 | NUR ---
SITTING UP IN CHAIR FOR MEAL.
--- NOTE | 2016-08-22 15:15 | NUR ---
CARE TEAM MEETING: SPOUSE ATTENDED MEETING. SHE WOULD LIKE REFERRAL TO [facility] DUE TO THE FACT THAT THEY WILL BE MOVING A WEEK AFTER HE DISCHARGES AND THEY HAVE NO PLACE TO STAY. WILL CONTINUE TO FOLLOW WITH PATIENT
[2016-08-22 19:05] VITALS: BP 118/57
--- NOTE | 2016-08-22 19:34 | NUR ---
PT IS RESTING IN BED WITH EYES CLOSED. AWOKE EASILY TO VERBAL STIMULI. PT DENIES ANY ACUTE PAIN OR DISCOMFORT. NO SOB NOTED. SR'S ARE UP X 3 IN BED. CALL LIGHT AND BEDSIDE TABLE ARE WITHIN EASY REACH.
--- NOTE | 2016-08-22 22:10 | NUR ---
PT IS RESTING QUIETLY IN BED WITH EYES CLOSED. RESPS ARE EVEN AND UNLABORED. NO ACUTE DISTRESS NOTED.
[2016-08-22 22:53] VITALS: BP 118/57
--- NOTE | 2016-08-22 23:12 | NUR ---
PT. IN BED WITH HOB UP FOR COMFORT AND IS ON FIRST STEP MATTRESS. EYES ARE CLOSED AND RESP. DEEP AND EVEN. CALL LIGHT WITHIN REACH.
--- NOTE | 2016-08-22 23:26 | NUR ---
RESTING IN BED WITH EYES CLOSED.
--- NOTE | 2016-08-23 02:08 | NUR ---
RESTING IN BED WITH EYES CLOSED.
[2016-08-23 05:51] VITALS: BP 108/53
--- NOTE | 2016-08-23 05:59 | NUR ---
PT RESTING IN BED WITH EYES CLOSED. AWOKE EASILY TO VERBAL STIMULI. DENIES NEEDS AT THIS TIME. PT REFUSED A SHOWER AT THIS TIME. STATES: "IM GOING HOME IN A WEEK, AND ILL TAKE A SHOWER ANY TIME I WANT TO THEN."
--- NOTE | 2016-08-23 08:00 | NUR ---
GOING TO BATHROOM W/O SUPERVISION.INSTRUCTED IN DEPTH OF SAFETY AND NOT TO GET UP W/O SUPERVISION.
[2016-08-23 12:00] VITALS: BP 96/45
--- NOTE | 2016-08-23 12:00 | NUR ---
ASSISTED UP OOB TO WC FOR LUNCH.CL IN REACH.
--- NOTE | 2016-08-23 14:37 | NUR ---
Wound care reassessment: Bilateral heels continue to have bruising without blisters or open areas. Heels are being protected by using skin protectant wipes on skin and covering with 2x2 mepilex border. Heels are being bridged while in bed. He is on an air overlay mattress. Recommend continuing the above. Will continue monitoring.
[2016-08-23 18:00] VITALS: BP 120/73
--- NOTE | 2016-08-23 20:05 | NUR ---
PT RECEIVED IN BED WITH EYES CLOSED AND CHEST RISING. NO SIGN/SYMPTOMS OR DISTRESS NOTED. EASILY AROUSED TO VERBAL STIMULI. NO NEEDS MADE KNOWN. CALL LIGHT IN REACH.
[2016-08-24 00:10] VITALS: BP 121/48
--- NOTE | 2016-08-24 01:21 | NUR ---
PT IN BED WITH EYES CLOSED AND CHEST RISING. NO SIGN/SYMPTOMS OF DISTRESS NOTED. CALL LIGHT IN REACH.
[2016-08-24 06:26] VITALS: BP 133/57
--- NOTE | 2016-08-24 06:41 | NUR ---
PT IN BED WITH EYES CLOSED AND CHEST RISING. NO CONCERNS NOTED. CALL LIGHT IN REACH.
[2016-08-24 12:00] VITALS: BP 98/54
[2016-08-24 19:10] VITALS: BP 107/52
--- NOTE | 2016-08-24 19:25 | NUR ---
PT RECEIVED IN BED WITH EYES CLOSED AND CHEST RISING. EASILY AROUSED TO VERBAL STIMULI. NO CONCERNS MADE KNOWN AT THIS TIME. CALL LIGHT IN REACH.
--- NOTE | 2016-08-25 00:35 | NUR ---
PT IN BED WITH EYES CLOSED AND CHEST RISING. NO SIGN/SYMPTOMS OF DISTRESS. CALL LIGHT IN REACH.
[2016-08-25 01:17] VITALS: BP 128/57
[2016-08-25 05:35] VITALS: BP 101/52
--- NOTE | 2016-08-25 05:48 | NUR ---
PT IN BED WITH EYES OPEN WATCHING TV. NO CONCERNS OR COMPLAINTS MADE KNOWN. CALL LIGHT IN REACH.
--- NOTE | 2016-08-25 07:04 | NUR ---
RESTING QUIETLY IN BED. EYES CLOSED. CALL LIGHT IN REACH
[2016-08-25 10:25] VITALS: BP 87/42
--- NOTE | 2016-08-25 11:19 | NUR ---
REFERRAL FAXED TO [facility]
--- NOTE | 2016-08-25 17:30 | NUR ---
SITTING IN W/C IN ROOM EATING SUPPER. IN ROOM WITH PT. HE DENIES NEEDS.
[2016-08-25 18:06] VITALS: BP 94/56
--- NOTE | 2016-08-25 19:15 | NUR ---
PT IN BED WITH HOB UP FOR COMFORT. RESTING QUIETLY. PT'S CODE STATUS IS DNR. NO O2. NO IV. FSBS ACHS. PACEMAKER. 1ST STEP AIR MATTRESS. TREMORS IN HANDS. BED/CHAIR ALARM. BED IN LOWEST POSITION AND CALL LIGHT WITHIN REACH.
[2016-08-25 20:16] VITALS: BP 144/66
[2016-08-25 21:09] LABS: APPEARANCE CLEAR (CLEAR); BILIRUBIN NEGATIVE (NEGATIVE); COLOR YELLOW (YELLOW); GLUCOSE 100 mg/dL (NEGATIVE); KETONE NEGATIVE (NEGATIVE); LEUKOCYTE ESTERASE NEGATIVE (NEGATIVE); NITRITE NEGATIVE (NEGATIVE); PROTEIN NEGATIVE (NEGATIVE); SPECIFIC GRAVITY 1.015 (1.005-1.020); UROBILINOGEN NORMAL (NORMAL)
--- NOTE | 2016-08-25 21:45 | NUR ---
IN BED, EYES CLOSED. NO DISTRESS EVIDENT.
--- NOTE | 2016-08-25 23:15 | NUR ---
PT IN BED WITH HOB UP FOR COMFORT. EYES CLOSED. CHEST RISING AND FALLING. BED IN LOWEST POSITION AND CALL LIGHT WITHIN REACH.
[2016-08-26 00:05] VITALS: BP 139/61
--- NOTE | 2016-08-26 03:15 | NUR ---
PT LYING IN BED. EYES CLOSED. CHEST RISING AND FALLING. BED IN LOWEST POSITION AND CALL LIGHT WITHIN REACH.
[2016-08-26 03:35] LABS: BASOPHILS 0.2 % (0-2); EOSINOPHILS 4.6 % (0-7); HEMATOCRIT 30.3 % (42.0-54.0); HEMOGLOBIN 9.1 g/dL (13.5-17.5); IMMATURE GRANULOCYTES 0.7 % (0-5); LYMPHOCYTES 24.1 % (15-50); MCH 24.3 pg (26.0-34.0); MEAN PLATELET VOLUME 9.1 fL (7.4-10.4); MONOCYTES 8.3 % (2-11); NEUTROPHILS 62.1 % (40-80); PLATELET COUNT 307 10x3/uL (130-400); RBC 3.74 10x6/uL (4.20-6.10); RDW 28.4 % (11.5-14.5); WBC 6.1 10x3/uL (4.8-10.8)
[2016-08-26 03:47] LABS: ANION GAP 13.2 mmol/L (8-16); CALCIUM 8.2 mg/dL (8.5-10.1); CARBON DIOXIDE 25.2 mmol/L (21.0-32.0); CREATININE - SERUM 1.5 mg/dL (0.6-1.3); POTASSIUM - SERUM 4.4 mmol/L (3.5-5.1)
--- NOTE | 2016-08-26 05:48 | NUR ---
PT LYING IN BED. EYES CLOSED. RESPIRATIONS EVEN AND UNLABORED. BED IN LOWEST POSITION AND CALL LIGHT WITHIN REACH.
[2016-08-26 05:54] VITALS: BP 122/61
[2016-08-26 08:00] VITALS: BP 95/53
--- NOTE | 2016-08-26 08:00 | NUR ---
AWAKENED TO SIT ON SIDE OF BED;BREAKFAST GIVEN,CL IN REACH.
[2016-08-26 12:00] VITALS: BP 119/62
[2016-08-26 18:00] VITALS: BP 128/59
--- NOTE | 2016-08-26 20:00 | NUR ---
PT. IN BED WITH HOB UP FOR COMFORT LYING ON A FIRST STEP MATTRESS. PT. DENIES ANY NEEDS. ASSESSMENT COMPLETED. CALL LIGHT WITHIN REACH.
[2016-08-26 20:06] VITALS: BP 128/78
--- NOTE | 2016-08-26 23:22 | NUR ---
PT. IN BED WITH HOB UP FOR COMFORT AND IS LYING ON HIS LEFT SIDE. EYES CLOSED AND RESP. DEEP AND EVEN. CALL LIGHT WITHIN REACH.
[2016-08-27 00:27] VITALS: BP 114/54
--- NOTE | 2016-08-27 03:09 | NUR ---
PT. IN BED LYING ON HIS RIGHT SIDE WITH HOB UP FOR COMFORT. EYES CLOSED AND RESP. EVEN. CALL LIGHT WITHIN REACH.
--- NOTE | 2016-08-27 05:15 | NUR ---
FSBS THIS MORNING 87 AND PT. WANTED SOME APPLE JUICE WHICH WAS GIVEN AND CONSUMED 100%.
[2016-08-27 05:46] VITALS: BP 120/59
--- NOTE | 2016-08-27 08:00 | NUR ---
SHIFT ASSMT COMPLETED.STATES LEFT OF RIB CAGE SLIGHTLY PAINFUL.SITTING UP ON SIDE OF BED FOR BREAKFAST.CL IN REACH.
[2016-08-27 11:44] VITALS: BP 92/51
--- NOTE | 2016-08-27 12:00 | NUR ---
SITTING ON SIDE OF BED. AT BEDSIDE.EATING LUNCH.
[2016-08-27 18:00] VITALS: BP 128/56
--- NOTE | 2016-08-27 19:40 | NUR ---
PT IN BED WITH HOB UP FOR COMFORT. WATCHING TV. PT'S CODE STATUS IS DNR. BED WAIVER. 1ST STEP AIR MATTRESS. FSBS ACHS. Q6H VITALS. DAILY WEIGHT. PACEMAKER. BED IN LOWEST POSITION AND CALL LIGHT WITHIN REACH.
--- NOTE | 2016-08-27 23:40 | NUR ---
PT IN BED WITH HOB UP FOR COMFORT. RESTING QUIETLY. BED IN LOWEST POSITION AND CALL LIGHT WITHIN REACH.
[2016-08-28 00:03] VITALS: BP 119/48
--- NOTE | 2016-08-28 02:50 | NUR ---
PT RESTING QUIETLY, NO S/S OF ACUTE DISTRESS. RESPIRATIONS REGULAR AND UNLABORED.
--- NOTE | 2016-08-28 03:40 | NUR ---
PT IN BED WITH HOB UP FOR COMFORT. EYES CLOSED. CHEST RISING AND FALLING. BED IN LOWEST POSITION AND CALL LIGHT WITHIN REACH.
[2016-08-28 05:43] VITALS: BP 134/59
--- NOTE | 2016-08-28 07:13 | NUR ---
RESTING QUIETLY IN BED CALL LIGHT IN REACH
[2016-08-28 07:15] LABS: BASOPHILS 0.3 % (0-2); EOSINOPHILS 5.7 % (0-7); HEMATOCRIT 32.9 % (42.0-54.0); HEMOGLOBIN 9.8 g/dL (13.5-17.5); IMMATURE GRANULOCYTES 1.5 % (0-5); LYMPHOCYTES 21.4 % (15-50); MCH 24.5 pg (26.0-34.0); MCHC 29.8 g/dL (31.0-37.0); MCV 82.3 fL (80.0-100.0); MEAN PLATELET VOLUME 9.3 fL (7.4-10.4); MONOCYTES 8.9 % (2-11); NEUTROPHILS 62.2 % (40-80); PLATELET COUNT 366 10x3/uL (130-400); RDW 28.7 % (11.5-14.5); WBC 6.9 10x3/uL (4.8-10.8)
[2016-08-28 07:23] LABS: ANION GAP 14.5 mmol/L (8-16); CALCIUM 8.1 mg/dL (8.5-10.1); CARBON DIOXIDE 22.9 mmol/L (21.0-32.0); CREATININE - SERUM 1.6 mg/dL (0.6-1.3); POTASSIUM - SERUM 4.4 mmol/L (3.5-5.1)
[2016-08-28] MEDS ORDERED: CARDIZEM30 MG PO (08:58)
[2016-08-28] MEDS ORDERED: HYDROCODON-ACE1 EAC7 PO (09:00)
--- NOTE | 2016-08-28 10:01 | NUR ---
PATIENT DISCHRGING TO [facility] PER REQUEST. SHE IS MAKING ARRNAGMENTS FOR FOLLOW UP CARE APPOINTMENTS IN [place]. PATIENT WILL TRANSPORT TO [place] [facility]. PATIENT CHOICE FORM FOR SNF AND [facility] FORM SIGNED, EXPLAINED AND FILED IN CHART.
--- NOTE | 2016-08-28 13:10 | NUR ---
D/C TO [facility] VIA [employer]. HE LEFT WITH ALL PERSONAL BELONGINGS. PAPERWORK GIVEN TO TELEPHONE CLERK. REPORT CALLED TO MAXX AT [facility] [place]. HE HAS TREMORS, LEFT ELBOW SKIN TEAR AND BOTH HEELS ARE RED AND HAVE MEPILEX DRESSING TO ALL 3 PLACES. PT HAD FSBS OF 370 BUT ONLY ATE [facility] FOR LUNCH. ELEVATED BLOOD GLUCOSE WAS NOT TREATED DUE TO HX OF EXTREME FLUXUATIONS IN BLOOD GLUCOSE AND POOR APPETITE AT LUNCH.
[2016-08-28 14:58] VITALS: BP 94/41
== END 2016-08-28 13:10 | DRG 91 ==
LOC: D.REHAB 17:48
PROVIDERS: Internal Medicine Nephrology; ADMIT Emergency Medicine
DX: G72.89 Other specified myopathies (principal); I50.31 Acute diastolic (congestive) heart failure; J96.01 Acute respiratory failure with hypoxia; J90 Pleural effusion, not elsewhere classified; N18.4 Chronic kidney disease, stage 4 (severe); I13.0 Hypertensive heart and chronic kidney disease with heart failure and stage 1 through stage 4 chronic kidney disease, or unspecified chronic kidney disease; R25.1 Tremor, unspecified; J44.9 Chronic obstructive pulmonary disease, unspecified; I25.10 Atherosclerotic heart disease of native coronary artery without angina pectoris; I48.91 Unspecified atrial fibrillation; K21.9 Gastro-esophageal reflux disease without esophagitis; D50.9 Iron deficiency anemia, unspecified; E11.65 Type 2 diabetes mellitus with hyperglycemia; R09.02 Hypoxemia; E11.22 Type 2 diabetes mellitus with diabetic chronic kidney disease; R06.09 Other forms of dyspnea; R53.1 Weakness; R53.83 Other fatigue; N40.0 Benign prostatic hyperplasia without lower urinary tract symptoms; S22.49XD Multiple fractures of ribs, unspecified side, subsequent encounter for fracture with routine healing; W19.XXXD Unspecified fall, subsequent encounter